=== PATIENT | female | born 1930 | race Caucasian/White ===

== ENCOUNTER 2017-09-19 22:52 | Inpatient (IN) | payer MEDICARE, MEDICAID ==
[~2017-09-19] VITALS: Ht 152.4 cm; Wt 67.1 kg
--- NOTE | 2017-09-19 22:54 | ED.ADGEN ---
Past History Past Medical History: Anxiety, Depression Adult General Chief Complaint Chief Complaint ".. I here to get checked out... " I ve been more depressed... crying more.. 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 Pt. reportedly more depressed and crying frequently for no reason. Will not this participate in her care. Pt. sent to ED for eval to admit to [facility]- Dr. Ibarra. Pt. is a resident of [facility] for past two weeks. Pt. has long hx of depression, anxiety, Insomnia, HTN, Constipation. Pt. Fellow Sister's , one that has known her 50 + yrs. and one 2 1/2 yrs. state they feel she is more depressed. Pt. denies suicidal ideations. Review of Systems Review of Systems Constitutional: Denies fever or chills [] Eyes: Denies change in visual acuity, redness, or eye pain [] HENT: Denies nasal congestion or sore throat [] Respiratory: Denies cough or shortness of breath [] Cardiovascular: No additional information not addressed in HPI [] GI: Denies abdominal pain, nausea, vomiting, bloody stools or diarrhea [] : Denies dysuria or hematuria [] Musculoskeletal: Denies back pain or joint pain [] Integument: Denies rash or skin lesions [] Neurologic: Denies headache, focal weakness or sensory changes [] Endocrine: Denies polyuria or polydipsia [] All other systems were reviewed and found to be within normal limits, except as documented in this note. Family History Family History Non-contributory Current Medications Current Medications Current Medications Medications (Trade) Dose Ordered Sig/Lizbeth Start Time Stop Time Status Last Admin Dose Admin Clonidine HCl (Catapres Tts-2) 1 patch 1X ONCE 09/19/17 23:30 09/20/17 02:02 DC 09/19/17 01:00 1 PATCH Clonidine HCl (Catapres) 0.1 mg 1X ONCE 09/19/17 23:30 09/20/17 02:02 DC 09/19/17 01:00 0.1 MG See Nursing for Home meds Allergies Allergies As per Nursing Physical Exam Physical Exam Constitutional: Moderately acute distress, non-toxic appearance. [] HENT: Normocephalic, atraumatic, bilateral external ears normal, oropharynx moist, no oral exudates, nose normal. [] Eyes: PERRLA, EOMI, conjunctiva normal, no discharge. [] Glasses. Neck: Normal range of motion, no tenderness, supple, no stridor. [] Cardiovascular:Heart rate regular rhythm, no murmur [] Lungs & Thorax: Bilateral breath sounds equal at apex on auscultation [] Abdomen: Bowel sounds normal, soft, no tenderness, no masses, no pulsatile masses. [] Skin: Warm, dry, no erythema, no rash. [] Poor turgor Back: No tenderness, no CVA tenderness. [] Extremities: No tenderness, no cyanosis, no clubbing, ROM intact, no edema. [] Arthritic changes Neurologic: Alert and oriented X 3, No gross motor or sensory defects over baseline, no focal deficits noted. [] Psychologic: Affect anxious, judgement normal, mood depressed. ] Current Patient Data Vital Signs Vital Signs Date Time Temp Pulse Resp B/P (MAP) Pulse Ox O2 Delivery O2 Flow Rate FiO2 09/19/17 01:00 83 184/95 Lab Results Laboratory Tests Test 09/19/17 02:39 09/19/17 23:17 09/19/17 23:37 Ammonia 11 mcmol/L (11-34) Troponin I Quantitative < 0.017 ng/mL (0-0.055) Ethyl Alcohol Level < 10 mg/dL (0-10) White Blood Count 9.5 x10^3/uL (4.0-11.0) Red Blood Count 4.17 x10^6/uL (3.50-5.40) Hemoglobin 13.2 g/dL (12.0-15.5) Hematocrit 39.0 % (36.0-47.0) Mean Corpuscular Volume 93 fL (79-100) Mean Corpuscular Hemoglobin 32 pg (25-35) Mean Corpuscular Hemoglobin Concent 34 g/dL (31-37) Red Cell Distribution Width 13.3 % (11.5-14.5) Platelet Count 430 x10^3/uL (140-400) H Neutrophils (%) (Auto) 46 % (31-73) Lymphocytes (%) (Auto) 39 % (24-48) Monocytes (%) (Auto) 13 % (0-9) H Eosinophils (%) (Auto) 2 % (0-3) Basophils (%) (Auto) 1 % (0-3) Neutrophils # (Auto) 4.3 x10^3uL (1.8-7.7) Lymphocytes # (Auto) 3.8 x10^3/uL (1.0-4.8) Monocytes # (Auto) 1.2 x10^3/uL (0.0-1.1) H Eosinophils # (Auto) 0.2 x10^3/uL (0.0-0.7) Basophils # (Auto) 0.1 x10^3/uL (0.0-0.2) Erythrocyte Sedimentation Rate 12 (0-25) Sodium Level 136 mmol/L (136-145) Potassium Level 3.7 mmol/L (3.5-5.1) Chloride Level 100 mmol/L (98-107) Carbon Dioxide Level 31 mmol/L (21-32) Anion Gap 5 (6-14) L Blood Urea Nitrogen 17 mg/dL (7-20) Creatinine 0.9 mg/dL (0.6-1.0) Estimated GFR (Cockcroft-Gault) 59.5 Glucose Level 95 mg/dL (70-99) Calcium Level 8.8 mg/dL (8.5-10.1) Magnesium Level 2.1 mg/dL (1.8-2.4) Total Bilirubin 0.4 mg/dL (0.2-1.0) Direct Bilirubin 0.1 mg/dL (0.0-0.2) Aspartate Amino Transferase (AST) 16 U/L (15-37) Alanine Aminotransferase (ALT) 25 U/L (14-59) Alkaline Phosphatase 82 U/L (46-116) Creatine Kinase 46 U/L (26-192) Creatine Kinase MB (Mass) < 0.5 ng/mL (0.0-3.6) Creatine Kinase MB Relative Index 1.1 % (0-4) [id number]-Type Natriuretic Peptide 146 pg/mL (0-449) Total Protein 7.8 g/dL (6.4-8.2) Albumin 3.6 g/dL (3.4-5.0) Urine Collection Type Unknown Urine Color Yellow Urine Clarity Clear Urine pH 7.0 Urine Specific [place] 1.010 Urine Protein Neg (NEG-TRACE) Urine Glucose (UA) Neg mg/dL (NEG) Urine Ketones (Stick) Neg mg/dL (NEG) Urine Blood Small (NEG) Urine Nitrite Neg (NEG) Urine Bilirubin Neg (NEG) Urine Urobilinogen Dipstick 0.2 mg/dL (0.2 mg/dL) Urine Leukocyte Esterase Trace (NEG) Urine RBC 0 /HPF (0-2) Urine WBC Occ /HPF (0-4) Urine Squamous Epithelial Cells Occ /LPF Urine Bacteria 0 /HPF (0-FEW) Urine Opiates Screen Neg (NEG) Urine Methadone Screen Neg (NEG) Urine Barbiturates Neg (NEG) Urine Phencyclidine Screen Neg (NEG) Urine Amphetamine/Methamphetamine Neg (NEG) Urine Benzodiazepines Screen Neg (NEG) Urine Cocaine Screen Neg (NEG) Urine Cannabinoids Screen Neg (NEG) Urine Ethyl Alcohol Neg (NEG) EKG EKG My interpretation EKG shows a sinus rhythm at 81 bpm. Mild leftward axis. But no findings acute STEMI with contralateral changes[] Radiology/Procedures Radiology/Procedures My interpretation of chest x-ray shows mild chronic changes but no findings of acute cardiopulmonary changes. My interpretation CT of head shows no shift, mass, edema, bleed, or fracture. Some findings consistent with white matter disease and volume loss consistent with chronic age changes. See formal report when available[] Course & Med Decision Making Course & Med Decision Making Pertinent Labs and Imaging studies reviewed. (See chart for details) Pt. to be admitted to Dr. Ibarra- [facility]- pre approved [] Final Impression Final Impression 1. Mental Status Changes 2. Accelerated HTN 3. Depression 4. Anxiety[] Dragon Disclaimer Dragon Disclaimer This electronic medical record was generated, in whole or in part, using a voice recognition dictation system. HERBERT HEWITT MD Sep 19, 2017 22:54
[2017-09-19] MEDS ORDERED: SENN-79 PO (23:24)
[2017-09-19] MEDS ORDERED: METO-239 PO (23:24)
[2017-09-19] MEDS ORDERED: CALC500T13 PO (23:24)
[2017-09-19] MEDS ORDERED: CLON0.5T11 PO ×2 (23:24)
[2017-09-19] MEDS ORDERED: BUSP10TA PO (23:24)
[2017-09-19] MEDS ORDERED: ZOLP5TAB5 PO (23:24)
[2017-09-19] MEDS ORDERED: ACET500T68 PO ×2 (23:24)
[2017-09-19] MEDS ORDERED: PARO10TA3 PO (23:24)
[2017-09-19] MEDS ORDERED: NORT25CA PO (23:24)
[2017-09-19] MEDS ORDERED: MAGN2400 PO (23:24)
--- NOTE | 2017-09-19 23:24 | EKG ---
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
[2017-09-19] MEDS ORDERED: cloNIDine TTS-2 1 PATCH PATCH TD ONE (23:30)
[2017-09-19] MEDS ORDERED: cloNIDine HCL 0.1 MG TABLET PO ONE (23:30)
[2017-09-19 23:57] LABS: BASO # 0.1 x10^3/uL (0.0-0.2); BASO % 1 % (0-3); EOS # 0.2 x10^3/uL (0.0-0.7); EOS % 2 % (0-3); HEMOGLOBIN 13.2 g/dL (12.0-15.5); LYMPH # 3.8 x10^3/uL (1.0-4.8); LYMPH % 39 % (24-48); MEAN CORPUSCULAR HEMOGLOBIN 32 pg (25-35); MEAN CORPUSCULAR HGB CONC 34 g/dL (31-37); MEAN CORPUSCULAR VOLUME 93 fL (79-100); MONO # 1.2 x10^3/uL (0.0-1.1); MONO % 13 % (0-9); NEUT # 4.3 x10^3uL (1.8-7.7); NEUT % 46 % (31-73); PLATELET COUNT 430 x10^3/uL (140-400); RED BLOOD COUNT 4.17 x10^6/uL (3.50-5.40); RED CELL DISTRIBUTION WIDTH 13.3 % (11.5-14.5); WHITE BLOOD COUNT 9.5 x10^3/uL (4.0-11.0)
[2017-09-20 00:17] LABS: ANION GAP 5 (6-14); BLOOD UREA NITROGEN 17 mg/dL (7-20); CALCIUM 8.8 mg/dL (8.5-10.1); CARBON DIOXIDE 31 mmol/L (21-32); CHLORIDE 100 mmol/L (98-107); CREATININE 0.9 mg/dL (0.6-1.0); GFR 59.5; GLUCOSE 95 mg/dL (70-99); MAGNESIUM 2.1 mg/dL (1.8-2.4); POTASSIUM 3.7 mmol/L (3.5-5.1); SODIUM 136 mmol/L (136-145)
[2017-09-20 00:25] LABS: BARBITURATES NEG (NEG); BENZODIAZEPINES NEG (NEG); CANNABINOIDS NEG (NEG); COCAINE NEG (NEG); METHADONE NEG (NEG); OPIATES NEG (NEG); PHENCYCLIDINE NEG (NEG)
[2017-09-20 00:29] LABS: BILIRUBIN,URINE NEG (NEG); CLARITY,URINE CLEAR; COLOR,URINE YELLOW; GLUCOSE,URINE NEG (NEG)
[2017-09-20 00:30] LABS: BACTERIA,URINE 0 /HPF (0-FEW); NITRITE,URINE NEG (NEG); RBC,URINE 0 /HPF (0-2); SQUAMOUS EPITHELIAL CELL,UR OCC /LPF; UROBILINOGEN,URINE 0.2 mg/dL (0.2 mg/dL); WBC,URINE OCC /HPF (0-4)
--- NOTE | 2017-09-20 00:32 | RAD ---
INDICATION: MENTAL STATUS CHANGES COMPARISON: None. TECHNIQUE: Axial CT images obtained through the head without intravenous contrast. One or more of the following individualized dose reduction techniques were utilized for this examination: 1. Automated exposure control; 2. Adjustment of the mA and/or kV according to patient size; 3. Use of iterative reconstruction technique. FINDINGS: No intracranial hemorrhage. No midline shift. Basal cisterns patents. Ventricles and sulci are globally prominent. No acute osseous abnormality. Orbits and paranasal sinuses unremarkable. Scattered foci of low attenuation within the white matter. IMPRESSION: 1. No acute intracranial hemorrhage. 2. Scattered regions of low attenuation within the white matter. Non-specific in nature but frequently secondary to chronic small vessel ischemic disease. 3. Prominence of ventricles and sulci which is frequently secondary to age related volume loss. Electronically signed by: Miguelito Brumfield MD (09/20/2017 12:28 AM) [facility]
[2017-09-20 00:37] LABS: AMPHETAMINE/METHAMPHETAMINE NEG (NEG)
[2017-09-20 01:07] LABS: SEDIMENTATION RATE 12 (0-25)
[2017-09-20] MEDS ORDERED: MAG HYDROX/AL HYDROX/SIMETH 30 ML ORAL.SUSP PO PRN (02:00)
[2017-09-20] MEDS ORDERED: METHYL SALICYLATE/MENTHOL TOPICAL OINTMENT 29GM TUBE. TP PRN (02:00)
[2017-09-20] MEDS ORDERED: ACETAMINOPHEN 500 MG TABLET PO PRN (02:15)
[2017-09-20] MEDS ORDERED: SENNOSIDES 8.6 MG TABLET PO PRN (02:15)
[2017-09-20] MEDS: ACETAMINOPHEN 500 MG TABLET PO PRN (02:31)
[2017-09-20 02:37] LABS: ALBUMIN 3.6 g/dL (3.4-5.0); TOTAL BILIRUBIN 0.4 mg/dL (0.2-1.0); TOTAL PROTEIN 7.8 g/dL (6.4-8.2)
[2017-09-20 02:59] LABS: DIRECT BILIRUBIN 0.1 mg/dL (0.0-0.2)
[2017-09-20 04:24] VITALS: BP 159/92
[2017-09-20 05:46] VITALS: BP 111/65
--- NOTE | 2017-09-20 08:36 | RAD ---
Indication: Shortness of breath TECHNIQUE: Portable AP upright chest x-ray COMPARISON: None FINDINGS: Heart is normal in size. Lungs are clear. No pneumothorax or pleural effusion. Visualized bony thorax within normal limits. IMPRESSION: No acute cardiopulmonary process. Electronically signed by: Moise Juarez DO (09/20/2017 8:32 AM) [facility]
[2017-09-20] MEDS: PARoxetine 10 MG TABLET PO SCH (09:15)
[2017-09-20] MEDS: CALCIUM CARBONATE 500 MG TABLET PO SCH (09:16)
[2017-09-20] MEDS: clonazePAM 0.5 MG TABLET PO SCH ×2 (09:16→20:27)
[2017-09-20] MEDS: busPIRone 10 MG TABLET. PO SCH ×2 (09:16→20:26)
[2017-09-20] MEDS: METOPROLOL SUCC 24HR ER 25 MG TAB.ER.24H. PO SCH (09:16)
[2017-09-20 16:41] VITALS: BP 151/84
--- NOTE | 2017-09-20 20:04 | PDOC ---
Exam Note: Reynaldo Note: Please also refer to the separate dictated note~for this date of service dictated separately.~Patient seen individually. Discussed the patient with Nursing staff reviewed the chart.~Reviewed interim history and current functioning. Reviewed vital signs,~Labs/ Radiology~and current medications noted below. Continue current treatment with the changes noted in the dictated addendum note Assessment: Vital Signs: Vital Signs Date Time Temp Pulse Resp B/P (MAP) Pulse Ox O2 Delivery O2 Flow Rate FiO2 09/20/17 16:41 97.4 85 20 151/84 (106) 99 Room Air I&O Intake and Output 09/20/17 07:00 Intake Total 240 ml Balance 240 ml Intake Oral 240 ml # Voids 2 Labs: Laboratory Tests Test 09/19/17 23:17 09/19/17 23:37 White Blood Count 9.5 x10^3/uL (4.0-11.0) Red Blood Count 4.17 x10^6/uL (3.50-5.40) Hemoglobin 13.2 g/dL (12.0-15.5) Hematocrit 39.0 % (36.0-47.0) Mean Corpuscular Volume 93 fL (79-100) Mean Corpuscular Hemoglobin 32 pg (25-35) Mean Corpuscular Hemoglobin Concent 34 g/dL (31-37) Red Cell Distribution Width 13.3 % (11.5-14.5) Platelet Count 430 x10^3/uL (140-400) H Neutrophils (%) (Auto) 46 % (31-73) Lymphocytes (%) (Auto) 39 % (24-48) Monocytes (%) (Auto) 13 % (0-9) H Eosinophils (%) (Auto) 2 % (0-3) Basophils (%) (Auto) 1 % (0-3) Neutrophils # (Auto) 4.3 x10^3uL (1.8-7.7) Lymphocytes # (Auto) 3.8 x10^3/uL (1.0-4.8) Monocytes # (Auto) 1.2 x10^3/uL (0.0-1.1) H Eosinophils # (Auto) 0.2 x10^3/uL (0.0-0.7) Basophils # (Auto) 0.1 x10^3/uL (0.0-0.2) Erythrocyte Sedimentation Rate 12 (0-25) Sodium Level 136 mmol/L (136-145) Potassium Level 3.7 mmol/L (3.5-5.1) Chloride Level 100 mmol/L (98-107) Carbon Dioxide Level 31 mmol/L (21-32) Anion Gap 5 (6-14) L Blood Urea Nitrogen 17 mg/dL (7-20) Creatinine 0.9 mg/dL (0.6-1.0) Estimated GFR (Cockcroft-Gault) 59.5 Glucose Level 95 mg/dL (70-99) Calcium Level 8.8 mg/dL (8.5-10.1) Magnesium Level 2.1 mg/dL (1.8-2.4) Iron Level 38 ug/dL (50-170) L Total Iron Binding Capacity 285 ug/dL (250-450) Iron Saturation 13 % (15-34) L Total Bilirubin 0.4 mg/dL (0.2-1.0) Direct Bilirubin 0.1 mg/dL (0.0-0.2) Aspartate Amino Transferase (AST) 16 U/L (15-37) Alanine Aminotransferase (ALT) 25 U/L (14-59) Alkaline Phosphatase 82 U/L (46-116) Creatine Kinase 46 U/L (26-192) Creatine Kinase MB (Mass) < 0.5 ng/mL (0.0-3.6) Creatine Kinase MB Relative Index 1.1 % (0-4) MN-[id number]-C-Type Natriuretic Peptide 146 pg/mL (0-449) Total Protein 7.8 g/dL (6.4-8.2) Albumin 3.6 g/dL (3.4-5.0) Triglycerides Level 122 mg/dL (0-150) Cholesterol Level 226 mg/dL (0-200) H LDL Cholesterol, Calculated 138 mg/dL (0-100) H VLDL Cholesterol, Calculated 24 mg/dL (0-40) Non-HDL Cholesterol Calculated 162 mg/dL (0-129) H HDL Cholesterol 64 mg/dL (40-60) H Cholesterol/HDL Ratio 3.0 Vitamin B12 Level 456 pg/mL (247-911) 25-Hydroxy Vitamin D Total 22.1 ng/mL (30-100) L Urine Collection Type Unknown Urine Color Yellow Urine Clarity Clear Urine pH 7.0 Urine Specific [place] 1.010 Urine Protein Neg (NEG-TRACE) Urine Glucose (UA) Neg mg/dL (NEG) Urine Ketones (Stick) Neg mg/dL (NEG) Urine Blood Small (NEG) Urine Nitrite Neg (NEG) Urine Bilirubin Neg (NEG) Urine Urobilinogen Dipstick 0.2 mg/dL (0.2 mg/dL) Urine Leukocyte Esterase Trace (NEG) Urine RBC 0 /HPF (0-2) Urine WBC Occ /HPF (0-4) Urine Squamous Epithelial Cells Occ /LPF Urine Bacteria 0 /HPF (0-FEW) Urine Opiates Screen Neg (NEG) Urine Methadone Screen Neg (NEG) Urine Barbiturates Neg (NEG) Urine Phencyclidine Screen Neg (NEG) Urine Amphetamine/Methamphetamine Neg (NEG) Urine Benzodiazepines Screen Neg (NEG) Urine Cocaine Screen Neg (NEG) Urine Cannabinoids Screen Neg (NEG) Urine Ethyl Alcohol Neg (NEG) Current Medications: Meds: Current Medications Clonidine HCl (Catapres Tts-2) 1 patch 1X ONCE TD Last administered on at 01:00; Start 09/19/17 at 23:30; Stop 09/20/17 at 02:02; Status DC Clonidine HCl (Catapres) 0.1 mg 1X ONCE PO Last administered on 09/19/17at 01: 00; Start 09/19/17 at 23:30; Stop 09/20/17 at 02:02; Status DC Clonazepam (KlonoPIN) 0.25 mg DAILY PO Last administered on 09/20/17at 09:16; Start 09/20/17 at 09:00 Clonazepam (KlonoPIN) 0.5 mg HS PO ; Start 09/20/17 at 21:00 Nortriptyline HCl (Pamelor) 50 mg HS PO ; Start 09/20/17 at 21:00; Stop at 21:00; Status DC Zolpidem Tartrate (Ambien) 5 mg HS PO ; Start 09/20/17 at 21:00 Buspirone HCl (Buspar) 10 mg BID PO Last administered on 09/20/17at 09:16; Start 09/20/17 at 09:00 Paroxetine HCl (Paxil) 10 mg DAILY PO Last administered on 09/20/17at 09:15; Start 09/20/17 at 09:00 Calcium Carbonate/ Glycine (Oscal) 500 mg DAILY PO Last administered on at 09:16; Start 09/20/17 at 09:00 Metoprolol Succinate (Toprol Xl) 12.5 mg DAILY PO Last administered on at 09:16; Start 09/20/17 at 09:00 Acetaminophen (Tylenol) 1,000 mg PRN Q6HRS PRN PO PAIN / TEMP; Start 09/20/17 at 02:15 Acetaminophen (Tylenol) 500 mg PRN Q6HRS PRN PO PAIN / TEMP Last administered on 09/20/17at 02:31; Start 09/20/17 at 02:15 Magnesium Hydroxide (Milk Of Magnesia) 2,400 mg PRN DAILY PRN PO CONSTIPATION; Start 09/20/17 at 02:15 Sennosides (Senna) 8.6 mg PRN DAILY PRN PO CONSTIPATION; Start 09/20/17 at 02: 15 Multi-Ingredient Ointment (Analgesic [place]) 1 joaquim PRN QID PRN TP MUSCLE PAIN; Start 09/20/17 at 02:00 Al Hydroxide/Mg Hydroxide (Mylanta Plus Xs) 15 ml PRN AFTMEALHC PRN PO DYSPEPSIA; Start 09/20/17 at 02:00 Mirtazapine (Remeron) 7.5 mg QHS PO ; Start 09/20/17 at 21:00 Alprazolam (Xanax) 0.25 mg PRN Q2HR PRN PO ANXIETY / AGITATION; Start 09/20/17 at 18:45 Vitamin D (Vitamin D3) 50,000 unit WEEKLY PO ; Start 09/20/17 at 19:30 Active Scripts Active Reported Milk Of Magnesia (Magnesium Hydroxide) 2,400 Mg/10 Ml Oral.susp 2,400 Mg PO PRN DAILY PRN Clonazepam 0.5 Mg Tablet 0.25 Mg PO DAILY Clonazepam 0.5 Mg Tablet 0.5 Mg PO HS Zolpidem Tartrate 5 Mg Tablet 5 Mg PO HS Oyster Shell Calcium (Calcium Carbonate) 500 Mg Tablet 500 Mg PO DAILY Senna (Sennosides) 8.6 Mg Tablet 8.6 Mg PO PRN DAILY PRN Acetaminophen 500 Mg Tablet 1,000 Mg PO PRN Q6HRS PRN Acetaminophen 500 Mg Tablet 500 Mg PO PRN Q4HRS PRN Metoprolol Succinate ( Xl ) (Metoprolol Succinate) 25 Mg Tab.er.24h 12.5 Mg PO DAILY Nortriptyline Hcl 25 Mg Capsule 50 Mg PO HS Buspirone Hcl 10 Mg Tablet 10 Mg PO BID Paroxetine Hcl 10 Mg Tablet 10 Mg PO DAILY I have reviewed the current psychotropics carefully including drug interactions. Risk benefit ratio favors no change other than as noted in my dictated progress note. 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
[2017-09-20] MEDS: ZOLPIDEM 5 MG TABLET. PO SCH (20:27)
[2017-09-20] MEDS: CHOLECALCIFEROL (VITAMIN D3) 50,000 UNIT CAPSULE PO SCH (20:27)
[2017-09-20] MEDS: MIRTAZAPINE 7.5 MG TABLET. PO SCH (20:27)
[2017-09-20] MEDS ORDERED: NORTRIPTYLINE 25 MG CAPSULE PO SCH (21:00)
[2017-09-20 21:11] LABS: THYROXINE 6.2 ug/dL (4.5-12.0)
--- NOTE | 2017-09-21 01:07 | CONS ---
DATE OF CONSULTATION: 09/20/2017 REASON FOR CONSULTATION: Medical management. 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 She reported being more depressed, crying frequently for no reason. She would not participate in her care. She is not walking anymore and she apparently was moved from [facility] to [facility] in [place] for the past 2 weeks, hoping that this move will improve her anxiety, but apparently the patient has long history of depression, anxiety, insomnia, hypertension, constipation. Her fellow sisters feel that she is more depressed, but she denied any suicidal or homicidal ideation and was admitted for inpatient psychiatric stabilization. PAST MEDICAL HISTORY: Significant for hypertension, constipation, depression, anxiety, insomnia. PAST SURGICAL HISTORY: Significant for right ankle fracture, status post open reduction and internal fixation, left knee arthroplasty. She has a tracheostomy and bilateral cataract extraction. ALLERGIES: She is allergic TO PROCAINE AND CORTISONE. MEDICATIONS: She is currently on following medications: She is on metoprolol succinate 12.5 mg daily, acetaminophen 500 mg every 4 hours, Tylenol 1000 mg every 6 hours, clonazepam 0.5 mg at bedtime, clonazepam 0.25 mg daily, nortriptyline 50 mg at bedtime, paroxetine 10 mg daily, buspirone 10 mg twice a day, Ambien 5 mg at bedtime, calcium carbonate 500 mg, oyster shell calcium 500 mg daily, magnesium hydroxide for milk of magnesia daily p.r.n. for constipation, Senna 1 tablet p.o. daily p.r.n. for constipation. FAMILY HISTORY: She is 17 with family of 7 siblings, only 2 sisters are still alive, one older and one younger, both are survival one of the colon cancer and the other of breast cancer, has a very strong family history of cancer, hypertension and heart disease. 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 She does not smoke, drink alcohol or use recreational drugs. REVIEW OF SYSTEMS: As per history of present illness. PHYSICAL EXAMINATION GENERAL: When I examined her, she was sitting on the edge of the bed, comfortably in no apparent respiratory distress, slightly pale, but no jaundice, cyanosis or thyromegaly. No jugular venous distension. No lower limb edema. VITAL SIGNS: Her heart rate was 85, blood pressure was 151/84, temperature was 97.4, respiratory rate 20 and oxygen saturation was 99%. HEAD, EYES, EARS, NOSE AND THROAT: Showed normocephalic, atraumatic. NECK: Supple. HEART: Showed normal first and second sounds. No gallop, rub or murmur. CHEST: Clear to auscultation. No crepitation or rhonchi. ABDOMEN: Distended, soft, nontender. NEUROLOGIC: She is awake, alert, responding appropriately. Cranial nerves are intact. EXTREMITIES: She moves extremities without difficulty. She ambulates without assistance or assistive devices. LABORATORY DATA: Showed a white cell count of 9500, hemoglobin 13, hematocrit 39, MCV 93 and platelet count of 430,000 with normal manual differential. Her chemistry showed a serum sodium 136, potassium 3.7, chloride 100, bicarbonate 31, anion gap of 5, BUN 17, creatinine 0.9. Estimated GFR was 59 mL per minute. Her glucose 95. Calcium was 8.8, magnesium was 2.1. Her serum iron was 38, TIBC was 285, percent saturation was 13. Her total bilirubin is 0.4. AST, ALT, alkaline phosphatase were normal. Total protein 7.8, albumin was 3.6. Serum triglycerides 122, cholesterol 226, LDL was 138, VLDL was 24 and HDL was 64, ratio of 3. Her vitamin B12 was 456 and 25-hydroxy vitamin D3 was 22.1. Her TSH was slightly elevated at 4.296. Her urinalysis showed the urine was yellow, clear with a pH of 7, specific gravity of 1.010. The urine was negative for protein, glucose, ketones. There was small amount of blood, negative for nitrites and trace leukocyte esterase. No rbc's, no wbc's, and no bacteria. Her toxic screen was essentially negative. Her Treponema pallidum antibodies were nonreactive. She did have a CT scan of the head, which showed that the patient has no acute intracranial hemorrhage, scattered regions of low attenuation within the white matter, nonspecific in nature, but frequently secondary to chronic small vessel ischemic disease, she has prominence of ventricles sulci, which is frequently secondary to age-related volume loss. Her chest x-ray showed heart size is normal. Lungs are clear, no pneumothorax or pleural effusion, visualized bony thorax within normal limits. 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 She has moved from [facility] to the [facility] in [place] hoping this will help her symptoms. Apparently, she is now more isolated, does not participate with care, does not to do her daily walks that she used to do and was admitted to this unit for inpatient psychiatric stabilization. Medically, she has high blood pressure, vitamin D deficiency, chronic constipation, anxiety and depression. Apart from vitamin D deficiency, all her labs are remarkably normal. I will start her on cholecalciferol 50,000 units once a week and we will follow all her lab work that are still pending at the time of this dictation. Thank you, Dr. Ibarra for allowing me to participate in the care of this patient. LIANNE ASHFORD MD DR: HERMILA/kaitlin JOB#: [id number] / [id number]
[2017-09-21 05:15] LABS: HEMOGLOBIN A1C 5.6 % (4.8-5.6)
[2017-09-21 06:10] VITALS: BP 156/79
[2017-09-21] MEDS: busPIRone 10 MG TABLET. PO SCH ×2 (08:01→20:17)
[2017-09-21] MEDS: METOPROLOL SUCC 24HR ER 25 MG TAB.ER.24H. PO SCH (08:02)
[2017-09-21] MEDS: PARoxetine 10 MG TABLET PO SCH (08:02)
[2017-09-21] MEDS: CALCIUM CARBONATE 500 MG TABLET PO SCH (08:02)
[2017-09-21] MEDS: clonazePAM 0.5 MG TABLET PO SCH ×2 (08:03→20:18)
--- NOTE | 2017-09-21 10:33 | HP ---
ADMIT DATE: 09/20/2017 This late entry of date of service 09/20/2017, covers the elements not covered in my initial note 09/20/2017. I met with the patient evening of 09/20/2017. Previously discussed with nursing staff on 2 or 3 occasions, initially prior to the patient's admission to review the inpatient criteria and then since her admission on account of her complaints of anxiety and wanting something for it earlier in the day on 09/20/2017. 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 by her primary care physician, Dr. Jewel Cardenas on account of increased anxiety and depression having significant crying spells and anxiety episodes where she relates she cannot breathe and cannot function. Reportedly, the patient has a long history of depression and anxiety but symptoms have been worsening over the past 1 or 2 weeks. She has failed outpatient psychiatric interventions with Dr. Jefferson, her psychiatrist. CHIEF COMPLAINT: "I have anxiety attacks. I used to see my doctor, Dr. Rodriguez, in [place], [place] for many years and he had has me on medications but nothing is helping." HISTORY OF PRESENT ILLNESS: The patient relates a long history of depression, low mood, feeling somewhat hopeless, helpless with anxiety and panic attacks, significant insomnia. She has had some appetite disturbance as well. No clear history of bipolar disorder, suicidal or homicidal ideation. Most recently, the symptoms have been significantly incapacitating, unmanageable at the [facility] and therefore, referred for inpatient psychiatric stabilization. PAST PSYCHIATRIC HISTORY: As above. MEDICAL HISTORY: Positive for osteoporosis, hypertension, irritable bowel syndrome. ALLERGIES: NOVOCAIN, CORTISONE. CODE STATUS: DNR. ACCU-CHEKS: None. DIET: Regular, takes her medications whole. Ambulates ad naldo. UA on 09/19/2017, was negative. CURRENT PSYCHOTROPICS: At admission, Paxil 10 mg a day, BuSpar 10 mg daily, nortriptyline 50 mg daily, Ambien 5 mg at bedtime, Klonopin 0.5 mg at bedtime and 0.25 mg in the morning. FAMILY HISTORY: Noncontributory. SOCIAL HISTORY: No history of alcohol or drug abuse, physical, sexual or elder abuse. She is not known to be a perpetrator. REACTION TO HOSPITALIZATION: The patient accepting of this. ASSETS: Supportive living at the [facility]. MENTAL STATUS EXAM: The patient was seen individually at length the evening of 09/20/2017. She is well oriented, extremely anxious, apprehensive. Eye contact is good. Psychomotor activity normal to somewhat increased. Speech coherent, rapid at times consequent to anxiety. Abstraction fair, computation she was only able to do one step on serial 7 and that even with assistance. She spelled world forward no error and backward 2 errors, attention span short. Language function intact. No active suicidal or homicidal ideation. LABORATORY DATA: Reviewed. IMPRESSION: Major depressive disorder, recurrent; panic disorder; anxiety disorder, unspecified. Rest as above. PLAN: Admit to geropsychiatry unit at [facility]. I will see the patient daily individually from a psychiatric standpoint, medical followup with Dr. Davila/Dr. Vo. The Paxil could contribute to cytochrome P450 2D6 inhibition and affect the blood level of nortriptyline. Additionally, she is having significant insomnia, despite her current regimen. We changed the nortriptyline to Remeron 7.5 mg p.o. at bedtime and for now, maintain the Paxil, BuSpar, along with Ambien and Klonopin and start Xanax 0.25 mg q.2 hours p.r.n. anxiety max 1 mg in 24 hours. We will make further adjustments post baseline assessment and depending on her response to the initial changes. PEDRO BLAKELY MD DR: FERNANDA/kaitlin JOB#: [id number] / [id number]
[2017-09-21] MEDS: ALPRAZolam 0.25 MG TABLET PO PRN (12:57)
[2017-09-21 16:22] VITALS: BP 133/69
[2017-09-21] MEDS: MIRTAZAPINE 7.5 MG TABLET. PO SCH (20:17)
[2017-09-21] MEDS: ZOLPIDEM 5 MG TABLET. PO SCH (20:18)
--- NOTE | 2017-09-21 20:50 | PDOC ---
Exam Note: Reynaldo Note: Please also refer to the separate dictated note~for this date of service dictated separately.~Patient seen individually. Discussed the patient with Nursing staff reviewed the chart.~Reviewed interim history and current functioning. Reviewed vital signs,~Labs/ Radiology~and current medications noted below. Continue current treatment with the changes noted in the dictated addendum note Assessment: Vital Signs: Vital Signs Date Time Temp Pulse Resp B/P (MAP) Pulse Ox O2 Delivery O2 Flow Rate FiO2 09/21/17 16:22 97.6 80 16 133/69 (90) 99 09/20/17 16:41 Room Air I&O Intake and Output 09/21/17 07:00 Intake Total 1080 ml Balance 1080 ml Intake Oral 1080 ml Current Medications: Meds: Current Medications Clonidine HCl (Catapres Tts-2) 1 patch 1X ONCE TD Last administered on at 01:00; Start 09/19/17 at 23:30; Stop 09/20/17 at 02:02; Status DC Clonidine HCl (Catapres) 0.1 mg 1X ONCE PO Last administered on 09/19/17 01: 00; Start 09/19/17 at 23:30; Stop 09/20/17 at 02:02; Status DC Clonazepam (KlonoPIN) 0.25 mg DAILY PO Last administered on 09/21/17at 08:03; Start 09/20/17 at 09:00 Clonazepam (KlonoPIN) 0.5 mg HS PO Last administered on 09/21/17at 20:18; Start 09/20/17 at 21:00 Nortriptyline HCl (Pamelor) 50 mg HS PO ; Start 09/20/17 at 21:00; Stop at 21:00; Status DC Zolpidem Tartrate (Ambien) 5 mg HS PO Last administered on 09/21/17at 20:18; Start 09/20/17 at 21:00 Buspirone HCl (Buspar) 10 mg BID PO Last administered on 09/21/17at 20:17; Start 09/20/17 at 09:00 Paroxetine HCl (Paxil) 10 mg DAILY PO Last administered on 09/21/17at 08:02; Start 09/20/17 at 09:00 Calcium Carbonate/ Glycine (Oscal) 500 mg DAILY PO Last administered on 6/13/ 18at 08:02; Start 09/20/17 at 09:00 Metoprolol Succinate (Toprol Xl) 12.5 mg DAILY PO Last administered on at 08:02; Start 09/20/17 at 09:00 Acetaminophen (Tylenol) 1,000 mg PRN Q6HRS PRN PO PAIN / TEMP; Start 09/20/17 at 02:15 Acetaminophen (Tylenol) 500 mg PRN Q6HRS PRN PO PAIN / TEMP Last administered on 09/20/17at 02:31; Start 09/20/17 at 02:15 Magnesium Hydroxide (Milk Of Magnesia) 2,400 mg PRN DAILY PRN PO CONSTIPATION; Start 09/20/17 at 02:15 Sennosides (Senna) 8.6 mg PRN DAILY PRN PO CONSTIPATION; Start 09/20/17 at 02: 15 Multi-Ingredient Ointment (Analgesic [place]) 1 joaquim PRN QID PRN TP MUSCLE PAIN; Start 09/20/17 at 02:00 Al Hydroxide/Mg Hydroxide (Mylanta Plus Xs) 15 ml PRN AFTMEALHC PRN PO DYSPEPSIA; Start 09/20/17 at 02:00 Mirtazapine (Remeron) 7.5 mg QHS PO Last administered on 09/21/17at 20:17; Start 09/20/17 at 21:00 Alprazolam (Xanax) 0.25 mg PRN Q2HR PRN PO ANXIETY / AGITATION Last administered on 09/21/17at 12:57; Start 09/20/17 at 18:45 Vitamin D (Vitamin D3) 50,000 unit WEEKLY PO Last administered on 09/20/17at 20: 27; Start 09/20/17 at 19:30 Active Scripts Active Reported Milk Of Magnesia (Magnesium Hydroxide) 2,400 Mg/10 Ml Oral.susp 2,400 Mg PO PRN DAILY PRN Clonazepam 0.5 Mg Tablet 0.25 Mg PO DAILY Clonazepam 0.5 Mg Tablet 0.5 Mg PO HS Zolpidem Tartrate 5 Mg Tablet 5 Mg PO HS Oyster Shell Calcium (Calcium Carbonate) 500 Mg Tablet 500 Mg PO DAILY Senna (Sennosides) 8.6 Mg Tablet 8.6 Mg PO PRN DAILY PRN Acetaminophen 500 Mg Tablet 1,000 Mg PO PRN Q6HRS PRN Acetaminophen 500 Mg Tablet 500 Mg PO PRN Q4HRS PRN Metoprolol Succinate ( Xl ) (Metoprolol Succinate) 25 Mg Tab.er.24h 12.5 Mg PO DAILY Nortriptyline Hcl 25 Mg Capsule 50 Mg PO HS Buspirone Hcl 10 Mg Tablet 10 Mg PO BID Paroxetine Hcl 10 Mg Tablet 10 Mg PO DAILY I have reviewed the current psychotropics carefully including drug interactions. Risk benefit ratio favors no change other than as noted in my dictated progress note. 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
[2017-09-22 05:48] VITALS: BP 147/80
[2017-09-22] MEDS: CALCIUM CARBONATE 500 MG TABLET PO SCH (08:15)
[2017-09-22] MEDS: PARoxetine 10 MG TABLET PO SCH (08:15)
[2017-09-22] MEDS: METOPROLOL SUCC 24HR ER 25 MG TAB.ER.24H. PO SCH (08:16)
[2017-09-22] MEDS: busPIRone 10 MG TABLET. PO SCH ×2 (08:16→20:30)
[2017-09-22] MEDS: clonazePAM 0.5 MG TABLET PO SCH ×2 (08:17→20:30)
[2017-09-22] MEDS: ALPRAZolam 0.25 MG TABLET PO PRN (14:23)
[2017-09-22 16:41] VITALS: BP 164/81
[2017-09-22] MEDS: MIRTAZAPINE 7.5 MG TABLET. PO SCH (20:30)
[2017-09-22] MEDS: ZOLPIDEM 5 MG TABLET. PO SCH (20:30)
--- NOTE | 2017-09-22 22:23 | PDOC ---
Exam Note: Reynaldo Note: Please also refer to the separate dictated note~for this date of service dictated separately.~Patient seen individually. Discussed the patient with Nursing staff reviewed the chart.~Reviewed interim history and current functioning. Reviewed vital signs,~Labs/ Radiology~and current medications noted below. Continue current treatment with the changes noted in the dictated addendum note Assessment: Vital Signs: Vital Signs Date Time Temp Pulse Resp B/P (MAP) Pulse Ox O2 Delivery O2 Flow Rate FiO2 09/22/17 16:41 97.3 85 20 164/81 (108) 99 Room Air I&O Intake and Output 09/22/17 07:00 Intake Total 1200 ml Balance 1200 ml Intake Oral 1200 ml # Voids 1 Current Medications: Meds: Current Medications Clonidine HCl (Catapres Tts-2) 1 patch 1X ONCE TD Last administered on at 01:00; Start 09/19/17 at 23:30; Stop 09/20/17 at 02:02; Status DC Clonidine HCl (Catapres) 0.1 mg 1X ONCE PO Last administered on 09/19/17at 01: 00; Start 09/19/17 at 23:30; Stop 09/20/17 at 02:02; Status DC Clonazepam (KlonoPIN) 0.25 mg DAILY PO Last administered on 09/22/17at 08:17; Start 09/20/17 at 09:00 Clonazepam (KlonoPIN) 0.5 mg HS PO Last administered on 09/22/17at 20:30; Start 09/20/17 at 21:00 Nortriptyline HCl (Pamelor) 50 mg HS PO ; Start 09/20/17 at 21:00; Stop at 21:00; Status DC Zolpidem Tartrate (Ambien) 5 mg HS PO Last administered on 09/22/17at 20:30; Start 09/20/17 at 21:00 Buspirone HCl (Buspar) 10 mg BID PO Last administered on 09/22/17at 20:30; Start 09/20/17 at 09:00 Paroxetine HCl (Paxil) 10 mg DAILY PO Last administered on 09/22/17at 08:15; Start 09/20/17 at 09:00 Calcium Carbonate/ Glycine (Oscal) 500 mg DAILY PO Last administered on at 08:15; Start 09/20/17 at 09:00 Metoprolol Succinate (Toprol Xl) 12.5 mg DAILY PO Last administered on at 08:16; Start 09/20/17 at 09:00 Acetaminophen (Tylenol) 1,000 mg PRN Q6HRS PRN PO PAIN / TEMP; Start 09/20/17 at 02:15 Acetaminophen (Tylenol) 500 mg PRN Q6HRS PRN PO PAIN / TEMP Last administered on 09/20/17at 02:31; Start 09/20/17 at 02:15 Magnesium Hydroxide (Milk Of Magnesia) 2,400 mg PRN DAILY PRN PO CONSTIPATION; Start 09/20/17 at 02:15 Sennosides (Senna) 8.6 mg PRN DAILY PRN PO CONSTIPATION; Start 09/20/17 at 02: 15 Multi-Ingredient Ointment (Analgesic [place]) 1 joaquim PRN QID PRN TP MUSCLE PAIN; Start 09/20/17 at 02:00 Al Hydroxide/Mg Hydroxide (Mylanta Plus Xs) 15 ml PRN AFTMEALHC PRN PO DYSPEPSIA; Start 09/20/17 at 02:00 Mirtazapine (Remeron) 7.5 mg QHS PO Last administered on 09/22/17at 20:30; Start 09/20/17 at 21:00 Alprazolam (Xanax) 0.25 mg PRN Q2HR PRN PO ANXIETY / AGITATION Last administered on 09/22/17at 14:23; Start 09/20/17 at 18:45 Vitamin D (Vitamin D3) 50,000 unit WEEKLY PO Last administered on 09/20/17at 20: 27; Start 09/20/17 at 19:30 Active Scripts Active Reported Milk Of Magnesia (Magnesium Hydroxide) 2,400 Mg/10 Ml Oral.susp 2,400 Mg PO PRN DAILY PRN Clonazepam 0.5 Mg Tablet 0.25 Mg PO DAILY Clonazepam 0.5 Mg Tablet 0.5 Mg PO HS Zolpidem Tartrate 5 Mg Tablet 5 Mg PO HS Oyster Shell Calcium (Calcium Carbonate) 500 Mg Tablet 500 Mg PO DAILY Senna (Sennosides) 8.6 Mg Tablet 8.6 Mg PO PRN DAILY PRN Acetaminophen 500 Mg Tablet 1,000 Mg PO PRN Q6HRS PRN Acetaminophen 500 Mg Tablet 500 Mg PO PRN Q4HRS PRN Metoprolol Succinate ( Xl ) (Metoprolol Succinate) 25 Mg Tab.er.24h 12.5 Mg PO DAILY Nortriptyline Hcl 25 Mg Capsule 50 Mg PO HS Buspirone Hcl 10 Mg Tablet 10 Mg PO BID Paroxetine Hcl 10 Mg Tablet 10 Mg PO DAILY I have reviewed the current psychotropics carefully including drug interactions. Risk benefit ratio favors no change other than as noted in my dictated progress note. 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
[2017-09-23] MEDS: ACETAMINOPHEN 500 MG TABLET PO PRN (02:11)
[2017-09-23 06:35] VITALS: BP 158/81
[2017-09-23] MEDS: PARoxetine 10 MG TABLET PO SCH (08:11)
[2017-09-23] MEDS: METOPROLOL SUCC 24HR ER 25 MG TAB.ER.24H. PO SCH (08:12)
[2017-09-23] MEDS: busPIRone 10 MG TABLET. PO SCH ×2 (08:16→21:05)
[2017-09-23] MEDS: clonazePAM 0.5 MG TABLET PO SCH ×2 (08:16→21:06)
[2017-09-23] MEDS: CALCIUM CARBONATE 500 MG TABLET PO SCH (08:16)
[2017-09-23] MEDS: ALPRAZolam 0.25 MG TABLET PO PRN ×2 (10:40→15:27)
[2017-09-23 16:31] VITALS: BP 148/75
[2017-09-23] MEDS: ZOLPIDEM 5 MG TABLET. PO SCH (21:05)
[2017-09-23] MEDS: MIRTAZAPINE 15 MG TABLET PO SCH (21:06)
--- NOTE | 2017-09-23 22:24 | PDOC ---
Exam Note: Reynaldo Note: Please also refer to the separate dictated note~for this date of service dictated separately.~Patient seen individually. Discussed the patient with Nursing staff reviewed the chart.~Reviewed interim history and current functioning. Reviewed vital signs,~Labs/ Radiology~and current medications noted below. Continue current treatment with the changes noted in the dictated addendum note Assessment: Vital Signs: Vital Signs Date Time Temp Pulse Resp B/P (MAP) Pulse Ox O2 Delivery O2 Flow Rate FiO2 09/23/17 16:31 97.1 77 20 148/75 (99) 98 Room Air I&O Intake and Output 09/23/17 07:00 Intake Total 1840 ml Balance 1840 ml Intake Oral 1840 ml # Voids 1 Current Medications: Meds: Current Medications Clonidine HCl (Catapres Tts-2) 1 patch 1X ONCE TD Last administered on at 01:00; Start 09/19/17 at 23:30; Stop 09/20/17 at 02:02; Status DC Clonidine HCl (Catapres) 0.1 mg 1X ONCE PO Last administered on 09/19/17at 01: 00; Start 09/19/17 at 23:30; Stop 09/20/17 at 02:02; Status DC Clonazepam (KlonoPIN) 0.25 mg DAILY PO Last administered on 09/23/17at 08:16; Start 09/20/17 at 09:00 Clonazepam (KlonoPIN) 0.5 mg HS PO Last administered on 09/23/17at 21:06; Start 09/20/17 at 21:00 Nortriptyline HCl (Pamelor) 50 mg HS PO ; Start 09/20/17 at 21:00; Stop at 21:00; Status DC Zolpidem Tartrate (Ambien) 5 mg HS PO Last administered on 09/23/17at 21:05; Start 09/20/17 at 21:00 Buspirone HCl (Buspar) 10 mg BID PO Last administered on 09/23/17at 21:05; Start 09/20/17 at 09:00 Paroxetine HCl (Paxil) 10 mg DAILY PO Last administered on 09/23/17at 08:11; Start 09/20/17 at 09:00; Stop 09/23/17 at 19:20; Status DC Calcium Carbonate/ Glycine (Oscal) 500 mg DAILY PO Last administered on at 08:16; Start 09/20/17 at 09:00 Metoprolol Succinate (Toprol Xl) 12.5 mg DAILY PO Last administered on at 08:12; Start 09/20/17 at 09:00 Acetaminophen (Tylenol) 1,000 mg PRN Q6HRS PRN PO PAIN / TEMP; Start 09/20/17 at 02:15 Acetaminophen (Tylenol) 500 mg PRN Q6HRS PRN PO PAIN / TEMP Last administered on 09/23/17at 02:11; Start 09/20/17 at 02:15 Magnesium Hydroxide (Milk Of Magnesia) 2,400 mg PRN DAILY PRN PO CONSTIPATION; Start 09/20/17 at 02:15 Sennosides (Senna) 8.6 mg PRN DAILY PRN PO CONSTIPATION; Start 09/20/17 at 02: 15 Multi-Ingredient Ointment (Analgesic [place]) 1 joaquim PRN QID PRN TP MUSCLE PAIN; Start 09/20/17 at 02:00 Al Hydroxide/Mg Hydroxide (Mylanta Plus Xs) 15 ml PRN AFTMEALHC PRN PO DYSPEPSIA; Start 09/20/17 at 02:00 Mirtazapine (Remeron) 7.5 mg QHS PO Last administered on 09/22/17at 20:30; Start 09/20/17 at 21:00; Stop 09/23/17 at 19:20; Status DC Alprazolam (Xanax) 0.25 mg PRN Q2HR PRN PO ANXIETY / AGITATION Last administered on 09/23/17at 15:27; Start 09/20/17 at 18:45 Vitamin D (Vitamin D3) 50,000 unit WEEKLY PO Last administered on 09/20/17at 20: 27; Start 09/20/17 at 19:30 Mirtazapine (Remeron) 15 mg QHS PO Last administered on 09/23/17at 21:06; Start 09/23/17 at 21:00 Paroxetine HCl (Paxil) 15 mg DAILY PO ; Start 09/24/17 at 09:00 Active Scripts Active Reported Milk Of Magnesia (Magnesium Hydroxide) 2,400 Mg/10 Ml Oral.susp 2,400 Mg PO PRN DAILY PRN Clonazepam 0.5 Mg Tablet 0.25 Mg PO DAILY Clonazepam 0.5 Mg Tablet 0.5 Mg PO HS Zolpidem Tartrate 5 Mg Tablet 5 Mg PO HS Oyster Shell Calcium (Calcium Carbonate) 500 Mg Tablet 500 Mg PO DAILY Senna (Sennosides) 8.6 Mg Tablet 8.6 Mg PO PRN DAILY PRN Acetaminophen 500 Mg Tablet 1,000 Mg PO PRN Q6HRS PRN Acetaminophen 500 Mg Tablet 500 Mg PO PRN Q4HRS PRN Metoprolol Succinate ( Xl ) (Metoprolol Succinate) 25 Mg Tab.er.24h 12.5 Mg PO DAILY Nortriptyline Hcl 25 Mg Capsule 50 Mg PO HS Buspirone Hcl 10 Mg Tablet 10 Mg PO BID Paroxetine Hcl 10 Mg Tablet 10 Mg PO DAILY I have reviewed the current psychotropics carefully including drug interactions. Risk benefit ratio favors no change other than as noted in my dictated progress note. 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
--- NOTE | 2017-09-24 00:37 | PN ---
DATE: 09/21/2017 PSYCHIATRIC PROGRESS NOTE This is a late entry for 09/21/2017, covers elements not covered in my initial note. SUBJECTIVE: I met with the patient in the evening. The patient slept 6-3/4 hours previous evening, which is quite an improvement for her. She is still somewhat anxious, more so in the evening, received Xanax x1, but subjectively states anxiety is better. REVIEW OF SYSTEMS: No CV, , pulmonary, eye, ENT system symptoms on review. MENTAL STATUS EXAM: Oriented to herself, situation. Speech coherent, abstraction fair, computation impaired, language function intact. Mood and affect remain somewhat anxious, but improved. LABORATORY DATA: Reviewed. IMPRESSION: Major depressive disorder, recurrent. The patient is somewhat isolative, almost tearful at times in the evening when I met with her; anxiety disorder, unspecified. PLAN: Continue his Paxil, BuSpar, Remeron, Ambien along with Klonopin and Xanax p.r.n. May consider changing Paxil to Cymbalta depending on her progress or may increase the Paxil and consider augmentation with Abilify if needed. PEDRO BLAKELY MD DR: FERNANDA/kaitlin JOB#: [id number] / [id number]
--- NOTE | 2017-09-24 00:44 | PN ---
DATE: 09/22/2017 PSYCHIATRIC PROGRESS NOTE This is a late entry for 09/22/2017, covers elements not covered in my initial note. SUBJECTIVE: I met with the patient in the evening and she was staffed at a treatment team meeting with the entire team in the morning. We reviewed her psychosocial history. The patient lives on the 2nd floor of the [facility], which is an assisted living. 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 She slept 7 hours previous evening. 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 REVIEW OF SYSTEMS: No CV, , pulmonary, eye system symptoms on review. MENTAL STATUS EXAM: Reasonably oriented. Speech coherent, rapid at times. Abstraction fair, computation impaired, language function intact. Mood and affect still depressed, anxious at times almost tearful as I met with her in her room. She tends to isolate. No suicidal ideation. LABORATORY DATA: Reviewed. IMPRESSION: Major depressive disorder, recurrent; anxiety disorder, unspecified. PLAN: Continue current psychotropics. Consider changing Paxil to Cymbalta or augmentation with Abilify. PEDRO BLAKELY MD DR: FERNANDA/kaitlin JOB#: [id number] / [id number]
[2017-09-24 06:28] VITALS: BP 139/66
[2017-09-24] MEDS: CALCIUM CARBONATE 500 MG TABLET PO SCH (07:29)
[2017-09-24] MEDS: busPIRone 10 MG TABLET. PO SCH ×2 (07:30→20:04)
[2017-09-24] MEDS: METOPROLOL SUCC 24HR ER 25 MG TAB.ER.24H. PO SCH (07:30)
[2017-09-24] MEDS: clonazePAM 0.5 MG TABLET PO SCH ×2 (07:33→20:04)
[2017-09-24] MEDS: PARoxetine 10 MG TABLET PO SCH (07:33)
[2017-09-24] MEDS: ALPRAZolam 0.25 MG TABLET PO PRN ×2 (11:51→15:03)
[2017-09-24 16:09] VITALS: BP 132/74
[2017-09-24] MEDS: ZOLPIDEM 5 MG TABLET. PO SCH (20:04)
[2017-09-24] MEDS: MIRTAZAPINE 15 MG TABLET PO SCH (20:04)
--- NOTE | 2017-09-24 22:27 | PDOC ---
Exam Note: Reynaldo Note: Please also refer to the separate dictated note~for this date of service dictated separately.~Patient seen individually. Discussed the patient with Nursing staff reviewed the chart.~Reviewed interim history and current functioning. Reviewed vital signs,~Labs/ Radiology~and current medications noted below. Continue current treatment with the changes noted in the dictated addendum note Assessment: Vital Signs: Vital Signs Date Time Temp Pulse Resp B/P (MAP) Pulse Ox O2 Delivery O2 Flow Rate FiO2 09/24/17 16:09 98.3 81 20 132/74 (93) 98 Room Air I&O Intake and Output 09/24/17 07:01 Intake Total 1320 ml Balance 1320 ml Intake Oral 1320 ml Current Medications: Meds: Current Medications Clonidine HCl (Catapres Tts-2) 1 patch 1X ONCE TD Last administered on at 01:00; Start 09/19/17 at 23:30; Stop 09/20/17 at 02:02; Status DC Clonidine HCl (Catapres) 0.1 mg 1X ONCE PO Last administered on 09/19/17at 01: 00; Start 09/19/17 at 23:30; Stop 09/20/17 at 02:02; Status DC Clonazepam (KlonoPIN) 0.25 mg DAILY PO Last administered on 09/24/17at 07:33; Start 09/20/17 at 09:00 Clonazepam (KlonoPIN) 0.5 mg HS PO Last administered on 09/24/17at 20:04; Start 09/20/17 at 21:00 Nortriptyline HCl (Pamelor) 50 mg HS PO ; Start 09/20/17 at 21:00; Stop at 21:00; Status DC Zolpidem Tartrate (Ambien) 5 mg HS PO Last administered on 09/24/17at 20:04; Start 09/20/17 at 21:00 Buspirone HCl (Buspar) 10 mg BID PO Last administered on 09/24/17at 20:04; Start 09/20/17 at 09:00 Paroxetine HCl (Paxil) 10 mg DAILY PO Last administered on 09/23/17at 08:11; Start 09/20/17 at 09:00; Stop 09/23/17 at 19:20; Status DC Calcium Carbonate/ Glycine (Oscal) 500 mg DAILY PO Last administered on at 07:29; Start 09/20/17 at 09:00 Metoprolol Succinate (Toprol Xl) 12.5 mg DAILY PO Last administered on at 07:30; Start 09/20/17 at 09:00 Acetaminophen (Tylenol) 1,000 mg PRN Q6HRS PRN PO PAIN / TEMP; Start 09/20/17 at 02:15 Acetaminophen (Tylenol) 500 mg PRN Q6HRS PRN PO PAIN / TEMP Last administered on 09/23/17at 02:11; Start 09/20/17 at 02:15 Magnesium Hydroxide (Milk Of Magnesia) 2,400 mg PRN DAILY PRN PO CONSTIPATION; Start 09/20/17 at 02:15 Sennosides (Senna) 8.6 mg PRN DAILY PRN PO CONSTIPATION; Start 09/20/17 at 02: 15 Multi-Ingredient Ointment (Analgesic [place]) 1 joaquim PRN QID PRN TP MUSCLE PAIN; Start 09/20/17 at 02:00 Al Hydroxide/Mg Hydroxide (Mylanta Plus Xs) 15 ml PRN AFTMEALHC PRN PO DYSPEPSIA; Start 09/20/17 at 02:00 Mirtazapine (Remeron) 7.5 mg QHS PO Last administered on 09/22/17at 20:30; Start 09/20/17 at 21:00; Stop 09/23/17 at 19:20; Status DC Alprazolam (Xanax) 0.25 mg PRN Q2HR PRN PO ANXIETY / AGITATION Last administered on 09/24/17at 15:03; Start 09/20/17 at 18:45 Vitamin D (Vitamin D3) 50,000 unit WEEKLY PO Last administered on 09/20/17at 20: 27; Start 09/20/17 at 19:30 Mirtazapine (Remeron) 15 mg QHS PO Last administered on 09/24/17at 20:04; Start 09/23/17 at 21:00 Paroxetine HCl (Paxil) 15 mg DAILY PO Last administered on 09/24/17at 07:33; Start 09/24/17 at 09:00 Active Scripts Active Reported Milk Of Magnesia (Magnesium Hydroxide) 2,400 Mg/10 Ml Oral.susp 2,400 Mg PO PRN DAILY PRN Clonazepam 0.5 Mg Tablet 0.25 Mg PO DAILY Clonazepam 0.5 Mg Tablet 0.5 Mg PO HS Zolpidem Tartrate 5 Mg Tablet 5 Mg PO HS Oyster Shell Calcium (Calcium Carbonate) 500 Mg Tablet 500 Mg PO DAILY Senna (Sennosides) 8.6 Mg Tablet 8.6 Mg PO PRN DAILY PRN Acetaminophen 500 Mg Tablet 1,000 Mg PO PRN Q6HRS PRN Acetaminophen 500 Mg Tablet 500 Mg PO PRN Q4HRS PRN Metoprolol Succinate ( Xl ) (Metoprolol Succinate) 25 Mg Tab.er.24h 12.5 Mg PO DAILY Nortriptyline Hcl 25 Mg Capsule 50 Mg PO HS Buspirone Hcl 10 Mg Tablet 10 Mg PO BID Paroxetine Hcl 10 Mg Tablet 10 Mg PO DAILY I have reviewed the current psychotropics carefully including drug interactions. Risk benefit ratio favors no change other than as noted in my dictated progress note. 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
[2017-09-25] MEDS: ACETAMINOPHEN 500 MG TABLET PO PRN (03:59)
[2017-09-25 06:06] VITALS: BP 136/65
[2017-09-25] MEDS: busPIRone 10 MG TABLET. PO SCH ×2 (08:38→19:36)
[2017-09-25] MEDS: PARoxetine 10 MG TABLET PO SCH (08:38)
[2017-09-25] MEDS: CALCIUM CARBONATE 500 MG TABLET PO SCH (08:38)
[2017-09-25] MEDS: METOPROLOL SUCC 24HR ER 25 MG TAB.ER.24H. PO SCH (08:39)
[2017-09-25] MEDS: clonazePAM 0.5 MG TABLET PO SCH ×2 (08:40→19:37)
[2017-09-25] MEDS: ALPRAZolam 0.25 MG TABLET PO PRN ×2 (11:42→16:03)
[2017-09-25 15:45] VITALS: BP 119/70
[2017-09-25] MEDS: ZOLPIDEM 5 MG TABLET. PO SCH (19:37)
[2017-09-25] MEDS: MIRTAZAPINE 15 MG TABLET PO SCH (19:37)
--- NOTE | 2017-09-25 20:59 | PDOC ---
Exam Note: Reynaldo Note: Please also refer to the separate dictated note~for this date of service dictated separately.~Patient seen individually. Discussed the patient with Nursing staff reviewed the chart.~Reviewed interim history and current functioning. Reviewed vital signs,~Labs/ Radiology~and current medications noted below. Continue current treatment with the changes noted in the dictated addendum note Assessment: Vital Signs: Vital Signs Date Time Temp Pulse Resp B/P (MAP) Pulse Ox O2 Delivery O2 Flow Rate FiO2 09/25/17 15:45 97.8 77 18 119/70 (86) 97 09/24/17 16:09 Room Air I&O Intake and Output 09/25/17 07:01 Intake Total 1445 ml Balance 1445 ml Intake Oral 1445 ml Current Medications: Meds: Current Medications Clonidine HCl (Catapres Tts-2) 1 patch 1X ONCE TD Last administered on at 01:00; Start 09/19/17 at 23:30; Stop 09/20/17 at 02:02; Status DC Clonidine HCl (Catapres) 0.1 mg 1X ONCE PO Last administered on 09/19/17at 01: 00; Start 09/19/17 at 23:30; Stop 09/20/17 at 02:02; Status DC Clonazepam (KlonoPIN) 0.25 mg DAILY PO Last administered on 09/25/17at 08:40; Start 09/20/17 at 09:00 Clonazepam (KlonoPIN) 0.5 mg HS PO Last administered on 09/25/17at 19:37; Start 09/20/17 at 21:00 Nortriptyline HCl (Pamelor) 50 mg HS PO ; Start 09/20/17 at 21:00; Stop at 21:00; Status DC Zolpidem Tartrate (Ambien) 5 mg HS PO Last administered on 09/25/17at 19:37; Start 09/20/17 at 21:00 Buspirone HCl (Buspar) 10 mg BID PO Last administered on 09/25/17at 19:36; Start 09/20/17 at 09:00 Paroxetine HCl (Paxil) 10 mg DAILY PO Last administered on 09/23/17at 08:11; Start 09/20/17 at 09:00; Stop 09/23/17 at 19:20; Status DC Calcium Carbonate/ Glycine (Oscal) 500 mg DAILY PO Last administered on at 08:38; Start 09/20/17 at 09:00 Metoprolol Succinate (Toprol Xl) 12.5 mg DAILY PO Last administered on at 08:39; Start 09/20/17 at 09:00 Acetaminophen (Tylenol) 1,000 mg PRN Q6HRS PRN PO PAIN / TEMP; Start 09/20/17 at 02:15 Acetaminophen (Tylenol) 500 mg PRN Q6HRS PRN PO PAIN / TEMP Last administered on 09/25/17at 03:59; Start 09/20/17 at 02:15 Magnesium Hydroxide (Milk Of Magnesia) 2,400 mg PRN DAILY PRN PO CONSTIPATION; Start 09/20/17 at 02:15 Sennosides (Senna) 8.6 mg PRN DAILY PRN PO CONSTIPATION; Start 09/20/17 at 02: 15 Multi-Ingredient Ointment (Analgesic [place]) 1 joaquim PRN QID PRN TP MUSCLE PAIN; Start 09/20/17 at 02:00 Al Hydroxide/Mg Hydroxide (Mylanta Plus Xs) 15 ml PRN AFTMEALHC PRN PO DYSPEPSIA; Start 09/20/17 at 02:00 Mirtazapine (Remeron) 7.5 mg QHS PO Last administered on 09/22/17at 20:30; Start 09/20/17 at 21:00; Stop 09/23/17 at 19:20; Status DC Alprazolam (Xanax) 0.25 mg PRN Q2HR PRN PO ANXIETY / AGITATION Last administered on 09/25/17at 16:03; Start 09/20/17 at 18:45 Vitamin D (Vitamin D3) 50,000 unit WEEKLY PO Last administered on 09/20/17at 20: 27; Start 09/20/17 at 19:30 Mirtazapine (Remeron) 15 mg QHS PO Last administered on 09/25/17at 19:37; Start 09/23/17 at 21:00 Paroxetine HCl (Paxil) 15 mg DAILY PO Last administered on 09/25/17at 08:38; Start 09/24/17 at 09:00 Active Scripts Active Reported Milk Of Magnesia (Magnesium Hydroxide) 2,400 Mg/10 Ml Oral.susp 2,400 Mg PO PRN DAILY PRN Clonazepam 0.5 Mg Tablet 0.25 Mg PO DAILY Clonazepam 0.5 Mg Tablet 0.5 Mg PO HS Zolpidem Tartrate 5 Mg Tablet 5 Mg PO HS Oyster Shell Calcium (Calcium Carbonate) 500 Mg Tablet 500 Mg PO DAILY Senna (Sennosides) 8.6 Mg Tablet 8.6 Mg PO PRN DAILY PRN Acetaminophen 500 Mg Tablet 1,000 Mg PO PRN Q6HRS PRN Acetaminophen 500 Mg Tablet 500 Mg PO PRN Q4HRS PRN Metoprolol Succinate ( Xl ) (Metoprolol Succinate) 25 Mg Tab.er.24h 12.5 Mg PO DAILY Nortriptyline Hcl 25 Mg Capsule 50 Mg PO HS Buspirone Hcl 10 Mg Tablet 10 Mg PO BID Paroxetine Hcl 10 Mg Tablet 10 Mg PO DAILY I have reviewed the current psychotropics carefully including drug interactions. Risk benefit ratio favors no change other than as noted in my dictated progress note. 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
[2017-09-25] MEDS: traZODone 50 MG TABLET. PO SCH (23:14)
--- NOTE | 2017-09-26 02:27 | PN ---
DATE: 09/23/2017 PSYCHIATRIC PROGRESS NOTE This late entry 09/23/2017, covers elements not covered in my initial note. SUBJECTIVE: Met with the patient in evening of 09/23/2017. The patient slept 4 hours previous evening, woke up at 2:00 a.m. She previously slept quite well after we initiated the Remeron for the first night. Admits to being depressed, still anxious, has needed PRNs twice during the day on 09/23/2017. She had visitors and was tearful after they left. REVIEW OF SYSTEMS: No CV, , pulmonary, eye system symptoms on review. MENTAL STATUS EXAM: Reasonably oriented. Speech is coherent, abstraction fair, computation impaired, language function intact, attention span short. Mood and affect still somewhat dysphoric, anxious. LABORATORY DATA: Reviewed. IMPRESSION: Unchanged from initial note. PLAN: Increased Paxil to 15 mg a day, Remeron to 15 mg at bedtime to help with the insomnia. Rest unchanged. PEDRO BLAKELY MD DR: FERNANDA/kaitlin JOB#: [id number] / [id number]
[2017-09-26 06:21] VITALS: BP 132/64
[2017-09-26] MEDS: clonazePAM 0.5 MG TABLET PO SCH ×2 (08:20→20:00)
[2017-09-26] MEDS: METOPROLOL SUCC 24HR ER 25 MG TAB.ER.24H. PO SCH (08:21)
[2017-09-26] MEDS: busPIRone 10 MG TABLET. PO SCH ×2 (08:21→19:56)
[2017-09-26] MEDS: CALCIUM CARBONATE 500 MG TABLET PO SCH (08:21)
[2017-09-26] MEDS: PARoxetine 10 MG TABLET PO SCH (08:21)
[2017-09-26 08:33] LABS: BASO # 0.1 x10^3/uL (0.0-0.2); BASO % 1 % (0-3); EOS # 0.3 x10^3/uL (0.0-0.7); EOS % 4 % (0-3); HEMOGLOBIN 12.3 g/dL (12.0-15.5); LYMPH % 39 % (24-48); MEAN CORPUSCULAR HEMOGLOBIN 31 pg (25-35); MEAN CORPUSCULAR HGB CONC 33 g/dL (31-37); MEAN CORPUSCULAR VOLUME 94 fL (79-100); MONO % 13 % (0-9); NEUT # 3.3 x10^3uL (1.8-7.7); NEUT % 43 % (31-73); PLATELET COUNT 394 x10^3/uL (140-400); RED BLOOD COUNT 3.94 x10^6/uL (3.50-5.40); RED CELL DISTRIBUTION WIDTH 13.3 % (11.5-14.5); WHITE BLOOD COUNT 7.7 x10^3/uL (4.0-11.0)
[2017-09-26 09:41] LABS: ALBUMIN 3.1 g/dL (3.4-5.0); ALBUMIN/GLOBULIN RATIO 0.8 (1.0-1.7); CALCIUM 8.9 mg/dL (8.5-10.1); CREATININE 0.8 mg/dL (0.6-1.0); GFR 68.2; POTASSIUM 4.1 mmol/L (3.5-5.1); TOTAL BILIRUBIN 0.4 mg/dL (0.2-1.0)
[2017-09-26] MEDS: ALPRAZolam 0.25 MG TABLET PO PRN (10:39)
--- NOTE | 2017-09-26 13:01 | PN ---
DATE: 09/24/2017 PSYCHIATRIC PROGRESS NOTE This is a late entry 09/24/2017, covers elements not covered in my initial note 09/24/2017. SUBJECTIVE: I met with the patient in the evening. The patient states she slept a little better with the Remeron, which was increased to 15 mg at bedtime. REVIEW OF SYSTEMS: She still gets anxious during the day, but no CV, , pulmonary, eye system symptoms on review. MENTAL STATUS EXAM: The patient is reasonably oriented. Speech is coherent, has some latency. Abstraction fair, computation impaired, language function intact, attention span short. Mood and affect remain somewhat anxious, dysphoric. LABORATORY DATA: Reviewed. IMPRESSION: Major depressive disorder, recurrent, in partial remission; anxiety disorder, unspecified ongoing insomnia. PLAN: Continue current psychotropics from initial note. Paxil was increased. We may increase it further or change to Cymbalta and may add trazodone if insomnia resurfaces. PEDRO BLAKELY MD DR: FERNANDA/kaitlin JOB#: [id number] / [id number]
--- NOTE | 2017-09-26 13:04 | PN ---
DATE: 09/25/2017 PSYCHIATRIC PROGRESS NOTE This is a late entry 09/25/2017, covers elements not covered in my initial note 09/25/2017. SUBJECTIVE: I met with the patient in the evening. The patient states she again slept poorly previous evening, woke up at 2:00 a.m., could not sleep after that despite increase of Remeron and this has increased her anxiety. She states she has used Xanax twice during the day on 09/25/2017. REVIEW OF SYSTEMS: No CV, , pulmonary, eye, ENT system symptoms on review. MENTAL STATUS EXAM: Reasonably oriented. Speech is coherent, has some latency. Abstraction fair, computation impaired, language function intact. Mood and affect remains anxious, slightly dysphoric. No psychotic symptoms, suicidal or homicidal ideation. IMPRESSION: Major depressive disorder; anxiety disorder, unspecified. PLAN: Continue psychotropics from initial note including the increased Remeron and the Paxil 15 mg a day. Start trazodone scheduled 50 mg at bedtime. Consider changing Paxil to Cymbalta as a more efficacious antidepressant depending on her progress and maintain Klonopin for now and Xanax p.r.n. PEDRO BLAKELY MD DR: FERNANDA/kaitlin JOB#: [id number] / [id number]
[2017-09-26 16:14] VITALS: BP 128/80
[2017-09-26] MEDS: ZOLPIDEM 5 MG TABLET. PO SCH (19:56)
[2017-09-26] MEDS: traZODone 50 MG TABLET. PO SCH (19:56)
[2017-09-26] MEDS: MIRTAZAPINE 15 MG TABLET PO SCH (20:00)
--- NOTE | 2017-09-26 20:59 | PDOC ---
Exam Note: Reynaldo Note: Please also refer to the separate dictated note~for this date of service dictated separately.~Patient seen individually. Discussed the patient with Nursing staff reviewed the chart.~Reviewed interim history and current functioning. Reviewed vital signs,~Labs/ Radiology~and current medications noted below. Continue current treatment with the changes noted in the dictated addendum note Assessment: Vital Signs: Vital Signs Date Time Temp Pulse Resp B/P (MAP) Pulse Ox O2 Delivery O2 Flow Rate FiO2 09/26/17 16:14 98.2 67 18 128/80 (96) 95 Room Air I&O Intake and Output 09/26/17 07:01 Intake Total 1985 ml Balance 1985 ml Intake Oral 1985 ml Labs: Laboratory Tests Test 09/26/17 07:31 White Blood Count 7.7 x10^3/uL (4.0-11.0) Red Blood Count 3.94 x10^6/uL (3.50-5.40) Hemoglobin 12.3 g/dL (12.0-15.5) Hematocrit 37.0 % (36.0-47.0) Mean Corpuscular Volume 94 fL (79-100) Mean Corpuscular Hemoglobin 31 pg (25-35) Mean Corpuscular Hemoglobin Concent 33 g/dL (31-37) Red Cell Distribution Width 13.3 % (11.5-14.5) Platelet Count 394 x10^3/uL (140-400) Neutrophils (%) (Auto) 43 % (31-73) Lymphocytes (%) (Auto) 39 % (24-48) Monocytes (%) (Auto) 13 % (0-9) H Eosinophils (%) (Auto) 4 % (0-3) H Basophils (%) (Auto) 1 % (0-3) Neutrophils # (Auto) 3.3 x10^3uL (1.8-7.7) Lymphocytes # (Auto) 3.0 x10^3/uL (1.0-4.8) Monocytes # (Auto) 1.0 x10^3/uL (0.0-1.1) Eosinophils # (Auto) 0.3 x10^3/uL (0.0-0.7) Basophils # (Auto) 0.1 x10^3/uL (0.0-0.2) Sodium Level 141 mmol/L (136-145) Potassium Level 4.1 mmol/L (3.5-5.1) Chloride Level 102 mmol/L (98-107) Carbon Dioxide Level 34 mmol/L (21-32) H Anion Gap 5 (6-14) L Blood Urea Nitrogen 16 mg/dL (7-20) Creatinine 0.8 mg/dL (0.6-1.0) Estimated GFR (Cockcroft-Gault) 68.2 BUN/Creatinine Ratio 20 (6-20) Glucose Level 89 mg/dL (70-99) Calcium Level 8.9 mg/dL (8.5-10.1) Total Bilirubin 0.4 mg/dL (0.2-1.0) Aspartate Amino Transferase (AST) 13 U/L (15-37) L Alanine Aminotransferase (ALT) 18 U/L (14-59) Alkaline Phosphatase 73 U/L (46-116) Total Protein 7.0 g/dL (6.4-8.2) Albumin 3.1 g/dL (3.4-5.0) L Albumin/Globulin Ratio 0.8 (1.0-1.7) L Current Medications: Meds: Current Medications Clonidine HCl (Catapres Tts-2) 1 patch 1X ONCE TD Last administered on at 01:00; Start 09/19/17 at 23:30; Stop 09/20/17 at 02:02; Status DC Clonidine HCl (Catapres) 0.1 mg 1X ONCE PO Last administered on 09/19/17at 01: 00; Start 09/19/17 at 23:30; Stop 09/20/17 at 02:02; Status DC Clonazepam (KlonoPIN) 0.25 mg DAILY PO Last administered on 09/26/17at 08:20; Start 09/20/17 at 09:00 Clonazepam (KlonoPIN) 0.5 mg HS PO Last administered on 09/26/17at 20:00; Start 09/20/17 at 21:00 Nortriptyline HCl (Pamelor) 50 mg HS PO ; Start 09/20/17 at 21:00; Stop at 21:00; Status DC Zolpidem Tartrate (Ambien) 5 mg HS PO Last administered on 09/26/17at 19:56; Start 09/20/17 at 21:00 Buspirone HCl (Buspar) 10 mg BID PO Last administered on 09/26/17at 19:56; Start 09/20/17 at 09:00 Paroxetine HCl (Paxil) 10 mg DAILY PO Last administered on 09/23/17at 08:11; Start 09/20/17 at 09:00; Stop 09/23/17 at 19:20; Status DC Calcium Carbonate/ Glycine (Oscal) 500 mg DAILY PO Last administered on at 08:21; Start 09/20/17 at 09:00 Metoprolol Succinate (Toprol Xl) 12.5 mg DAILY PO Last administered on at 08:21; Start 09/20/17 at 09:00 Acetaminophen (Tylenol) 1,000 mg PRN Q6HRS PRN PO PAIN / TEMP; Start 09/20/17 at 02:15 Acetaminophen (Tylenol) 500 mg PRN Q6HRS PRN PO PAIN / TEMP Last administered on 09/25/17at 03:59; Start 09/20/17 at 02:15 Magnesium Hydroxide (Milk Of Magnesia) 2,400 mg PRN DAILY PRN PO CONSTIPATION; Start 09/20/17 at 02:15 Sennosides (Senna) 8.6 mg PRN DAILY PRN PO CONSTIPATION; Start 09/20/17 at 02: 15 Multi-Ingredient Ointment (Analgesic [place]) 1 joaquim PRN QID PRN TP MUSCLE PAIN; Start 09/20/17 at 02:00 Al Hydroxide/Mg Hydroxide (Mylanta Plus Xs) 15 ml PRN AFTMEALHC PRN PO DYSPEPSIA; Start 09/20/17 at 02:00 Mirtazapine (Remeron) 7.5 mg QHS PO Last administered on 09/22/17at 20:30; Start 09/20/17 at 21:00; Stop 09/23/17 at 19:20; Status DC Alprazolam (Xanax) 0.25 mg PRN Q2HR PRN PO ANXIETY / AGITATION Last administered on 09/26/17at 10:39; Start 09/20/17 at 18:45 Vitamin D (Vitamin D3) 50,000 unit WEEKLY PO Last administered on 09/20/17at 20: 27; Start 09/20/17 at 19:30 Mirtazapine (Remeron) 15 mg QHS PO Last administered on 09/26/17at 20:00; Start 09/23/17 at 21:00 Paroxetine HCl (Paxil) 15 mg DAILY PO Last administered on 09/26/17at 08:21; Start 09/24/17 at 09:00; Stop 09/26/17 at 18:43; Status DC Trazodone HCl (Desyrel) 50 mg QHS PO ; Start 09/26/17 at 21:00; Stop 09/26/17 at 21:00; Status DC Trazodone HCl (Desyrel) 50 mg QHS PO Last administered on 09/26/17at 19:56; Start 09/25/17 at 23:00 Duloxetine HCl (Cymbalta) 30 mg DAILY PO ; Start 09/27/17 at 09:00; Stop at 18:00 Duloxetine HCl (Cymbalta) 60 mg DAILY PO ; Start 09/30/17 at 09:00 Active Scripts Active Reported Milk Of Magnesia (Magnesium Hydroxide) 2,400 Mg/10 Ml Oral.susp 2,400 Mg PO PRN DAILY PRN Clonazepam 0.5 Mg Tablet 0.25 Mg PO DAILY Clonazepam 0.5 Mg Tablet 0.5 Mg PO HS Zolpidem Tartrate 5 Mg Tablet 5 Mg PO HS Oyster Shell Calcium (Calcium Carbonate) 500 Mg Tablet 500 Mg PO DAILY Senna (Sennosides) 8.6 Mg Tablet 8.6 Mg PO PRN DAILY PRN Acetaminophen 500 Mg Tablet 1,000 Mg PO PRN Q6HRS PRN Acetaminophen 500 Mg Tablet 500 Mg PO PRN Q4HRS PRN Metoprolol Succinate ( Xl ) (Metoprolol Succinate) 25 Mg Tab.er.24h 12.5 Mg PO DAILY Nortriptyline Hcl 25 Mg Capsule 50 Mg PO HS Buspirone Hcl 10 Mg Tablet 10 Mg PO BID Paroxetine Hcl 10 Mg Tablet 10 Mg PO DAILY I have reviewed the current psychotropics carefully including drug interactions. Risk benefit ratio favors no change other than as noted in my dictated progress note. 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
[2017-09-26] MEDS ORDERED: traZODone 50 MG TABLET. PO SCH (21:00)
[2017-09-27 06:06] VITALS: BP 116/79
[2017-09-27] MEDS: METOPROLOL SUCC 24HR ER 25 MG TAB.ER.24H. PO SCH (07:59)
[2017-09-27] MEDS: CALCIUM CARBONATE 500 MG TABLET PO SCH (07:59)
[2017-09-27] MEDS: CHOLECALCIFEROL (VITAMIN D3) 50,000 UNIT CAPSULE PO SCH (08:00)
[2017-09-27] MEDS: busPIRone 10 MG TABLET. PO SCH ×2 (08:00→19:54)
[2017-09-27] MEDS: DULoxetine HCL 30 MG CAPSULE.DR PO SCH (08:02)
[2017-09-27] MEDS: clonazePAM 0.5 MG TABLET PO SCH ×2 (08:02→19:58)
[2017-09-27 15:50] VITALS: BP 109/65
[2017-09-27] MEDS: MIRTAZAPINE 15 MG TABLET PO SCH (19:54)
[2017-09-27] MEDS: traZODone 50 MG TABLET. PO SCH (19:54)
[2017-09-27] MEDS: ZOLPIDEM 5 MG TABLET. PO SCH (19:57)
--- NOTE | 2017-09-27 20:55 | PN ---
DATE: 09/27/2017 This is a late entry, 09/26/2017, covers the elements not covered in my initial note. SUBJECTIVE: I met with the patient in the evening. Overall, the patient states she slept better previous evening for 6 hours with the added trazodone, has done well during the day on 09/26/2017, but got anxious around 10:40 a.m., received Xanax. She states she feels depressed, but feels the anxiety is better. REVIEW OF SYSTEMS: No CV, , pulmonary, eye, ENT system symptoms on review. MENTAL STATUS EXAM: Reasonably oriented. Speech coherent, pleasant, verbal. Abstraction fair, computation somewhat impaired, language function intact, attention span fair. Mood and affect dysphoric, but the anxiety is better. No suicidal or homicidal ideation. LABORATORY DATA: Reviewed. IMPRESSION: Unchanged from initial note. PLAN: The patient is not responding to Paxil adequately. We will change this to Cymbalta 30 mg a day for 3 days, increasing to 60 mg a day. Continue rest unchanged per initial note. MAN Lulú BLAKELY MD DR: FERNANDA/kaitlin JOB#: [id number] / [id number]
--- NOTE | 2017-09-27 20:59 | PDOC ---
Exam Note: Reynaldo Note: Please also refer to the separate dictated note~for this date of service dictated separately.~Patient seen individually. Discussed the patient with Nursing staff reviewed the chart.~Reviewed interim history and current functioning. Reviewed vital signs,~Labs/ Radiology~and current medications noted below. Continue current treatment with the changes noted in the dictated addendum note Assessment: Vital Signs: Vital Signs Date Time Temp Pulse Resp B/P (MAP) Pulse Ox O2 Delivery O2 Flow Rate FiO2 09/27/17 15:50 97.7 70 18 109/65 (80) 96 09/26/17 16:14 Room Air I&O Intake and Output 09/27/17 07:00 Intake Total 1560 ml Balance 1560 ml Intake Oral 1560 ml Current Medications: Meds: Current Medications Clonidine HCl (Catapres Tts-2) 1 patch 1X ONCE TD Last administered on at 01:00; Start 09/19/17 at 23:30; Stop 09/20/17 at 02:02; Status DC Clonidine HCl (Catapres) 0.1 mg 1X ONCE PO Last administered on 09/19/17at 01: 00; Start 09/19/17 at 23:30; Stop 09/20/17 at 02:02; Status DC Clonazepam (KlonoPIN) 0.25 mg DAILY PO Last administered on 09/27/17at 08:02; Start 09/20/17 at 09:00 Clonazepam (KlonoPIN) 0.5 mg HS PO Last administered on 09/27/17at 19:58; Start 09/20/17 at 21:00 Nortriptyline HCl (Pamelor) 50 mg HS PO ; Start 09/20/17 at 21:00; Stop at 21:00; Status DC Zolpidem Tartrate (Ambien) 5 mg HS PO Last administered on 09/27/17at 19:57; Start 09/20/17 at 21:00 Buspirone HCl (Buspar) 10 mg BID PO Last administered on 09/27/17at 19:54; Start 09/20/17 at 09:00 Paroxetine HCl (Paxil) 10 mg DAILY PO Last administered on 09/23/17at 08:11; Start 09/20/17 at 09:00; Stop 09/23/17 at 19:20; Status DC Calcium Carbonate/ Glycine (Oscal) 500 mg DAILY PO Last administered on at 07:59; Start 09/20/17 at 09:00 Metoprolol Succinate (Toprol Xl) 12.5 mg DAILY PO Last administered on at 07:59; Start 09/20/17 at 09:00 Acetaminophen (Tylenol) 1,000 mg PRN Q6HRS PRN PO PAIN / TEMP; Start 09/20/17 at 02:15 Acetaminophen (Tylenol) 500 mg PRN Q6HRS PRN PO PAIN / TEMP Last administered on 09/25/17at 03:59; Start 09/20/17 at 02:15 Magnesium Hydroxide (Milk Of Magnesia) 2,400 mg PRN DAILY PRN PO CONSTIPATION; Start 09/20/17 at 02:15 Sennosides (Senna) 8.6 mg PRN DAILY PRN PO CONSTIPATION; Start 09/20/17 at 02: 15 Multi-Ingredient Ointment (Analgesic [place]) 1 joaquim PRN QID PRN TP MUSCLE PAIN; Start 09/20/17 at 02:00 Al Hydroxide/Mg Hydroxide (Mylanta Plus Xs) 15 ml PRN AFTMEALHC PRN PO DYSPEPSIA; Start 09/20/17 at 02:00 Mirtazapine (Remeron) 7.5 mg QHS PO Last administered on 09/22/17at 20:30; Start 09/20/17 at 21:00; Stop 09/23/17 at 19:20; Status DC Alprazolam (Xanax) 0.25 mg PRN Q2HR PRN PO ANXIETY / AGITATION Last administered on 09/26/17at 10:39; Start 09/20/17 at 18:45 Vitamin D (Vitamin D3) 50,000 unit WEEKLY PO Last administered on 09/27/17at 08: 00; Start 09/20/17 at 19:30 Mirtazapine (Remeron) 15 mg QHS PO Last administered on 09/27/17at 19:54; Start 09/23/17 at 21:00 Paroxetine HCl (Paxil) 15 mg DAILY PO Last administered on 09/26/17at 08:21; Start 09/24/17 at 09:00; Stop 09/26/17 at 18:43; Status DC Trazodone HCl (Desyrel) 50 mg QHS PO ; Start 09/26/17 at 21:00; Stop 09/26/17 at 21:00; Status DC Trazodone HCl (Desyrel) 50 mg QHS PO Last administered on 09/27/17at 19:54; Start 09/25/17 at 23:00 Duloxetine HCl (Cymbalta) 30 mg DAILY PO Last administered on 09/27/17at 08:02; Start 09/27/17 at 09:00; Stop 09/29/17 at 18:00 Duloxetine HCl (Cymbalta) 60 mg DAILY PO ; Start 09/30/17 at 09:00 Active Scripts Active Reported Milk Of Magnesia (Magnesium Hydroxide) 2,400 Mg/10 Ml Oral.susp 2,400 Mg PO PRN DAILY PRN Clonazepam 0.5 Mg Tablet 0.25 Mg PO DAILY Clonazepam 0.5 Mg Tablet 0.5 Mg PO HS Zolpidem Tartrate 5 Mg Tablet 5 Mg PO HS Oyster Shell Calcium (Calcium Carbonate) 500 Mg Tablet 500 Mg PO DAILY Senna (Sennosides) 8.6 Mg Tablet 8.6 Mg PO PRN DAILY PRN Acetaminophen 500 Mg Tablet 1,000 Mg PO PRN Q6HRS PRN Acetaminophen 500 Mg Tablet 500 Mg PO PRN Q4HRS PRN Metoprolol Succinate ( Xl ) (Metoprolol Succinate) 25 Mg Tab.er.24h 12.5 Mg PO DAILY Nortriptyline Hcl 25 Mg Capsule 50 Mg PO HS Buspirone Hcl 10 Mg Tablet 10 Mg PO BID Paroxetine Hcl 10 Mg Tablet 10 Mg PO DAILY I have reviewed the current psychotropics carefully including drug interactions. Risk benefit ratio favors no change other than as noted in my dictated progress note. 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
[2017-09-28 06:00] VITALS: BP 123/63
[2017-09-28] MEDS: busPIRone 10 MG TABLET. PO SCH ×2 (08:50→19:21)
[2017-09-28] MEDS: DULoxetine HCL 30 MG CAPSULE.DR PO SCH (08:50)
[2017-09-28] MEDS: METOPROLOL SUCC 24HR ER 25 MG TAB.ER.24H. PO SCH (08:50)
[2017-09-28] MEDS: CALCIUM CARBONATE 500 MG TABLET PO SCH (08:50)
[2017-09-28] MEDS: clonazePAM 0.5 MG TABLET PO SCH ×2 (08:52→19:24)
[2017-09-28] MEDS: ALPRAZolam 0.25 MG TABLET PO PRN (10:46)
--- NOTE | 2017-09-28 13:32 | PN ---
DATE: 09/27/2017 This is a late entry 09/27/2017 covers the elements not covered in my initial note. I met with the patient evening of 09/27/2017. The patient slept 7-1/2 hours previous evening. She complains of her head feeling stuffed in the morning, possibly since she started the trazodone. We will watch this over the next 1-2 days and this should disappear. Still admits to feeling depressed, takes an occasional Xanax for anxiety. She feels her anxiety is better, but depression is a problem subjectively for her. REVIEW OF SYSTEMS: No CV, , pulmonary, eye, ENT system symptoms on review. MENTAL STATUS EXAM: The patient is well oriented. Speech has some latency, coherent. Abstraction fair, computation impaired, language function intact. Attention span somewhat short. Mood and affect dysphoric, anxious but showing improvement. No suicidal or homicidal ideation. LABORATORY DATA: Reviewed. IMPRESSION: Major depressive disorder in partial remission; anxiety disorder, unspecified. PLAN: Change the Paxil to Cymbalta 30 mg a day, increasing to 60 mg a day on the . Maintain Ambien 5 mg at bedtime, BuSpar 10 mg b.i.d., Remeron 15 mg at bedtime, Klonopin 0.5 mg at bedtime and 0.25 mg in the morning, trazodone 50 mg at bedtime. We will make further adjustments as clinically indicated. PEDRO BLAKELY MD DR: FERNANDA/kaitlin JOB#: [id number] / [id number]
[2017-09-28 17:06] VITALS: BP 119/56
[2017-09-28] MEDS: traZODone 50 MG TABLET. PO SCH (19:22)
[2017-09-28] MEDS: MIRTAZAPINE 15 MG TABLET PO SCH (19:22)
[2017-09-28] MEDS: ZOLPIDEM 5 MG TABLET. PO SCH (19:24)
--- NOTE | 2017-09-28 20:48 | PDOC ---
Exam Note: Reynaldo Note: Please also refer to the separate dictated note~for this date of service dictated separately.~Patient seen individually. Discussed the patient with Nursing staff reviewed the chart.~Reviewed interim history and current functioning. Reviewed vital signs,~Labs/ Radiology~and current medications noted below. Continue current treatment with the changes noted in the dictated addendum note Assessment: Vital Signs: Vital Signs Date Time Temp Pulse Resp B/P (MAP) Pulse Ox O2 Delivery O2 Flow Rate FiO2 09/28/17 17:06 98.0 70 18 119/56 (77) 98 09/26/17 16:14 Room Air I&O Intake and Output 09/28/17 07:00 Intake Total 1580 ml Balance 1580 ml Intake Oral 1580 ml Current Medications: Meds: Current Medications Clonidine HCl (Catapres Tts-2) 1 patch 1X ONCE TD Last administered on at 01:00; Start 09/19/17 at 23:30; Stop 09/20/17 at 02:02; Status DC Clonidine HCl (Catapres) 0.1 mg 1X ONCE PO Last administered on 09/19/17at 01: 00; Start 09/19/17 at 23:30; Stop 09/20/17 at 02:02; Status DC Clonazepam (KlonoPIN) 0.25 mg DAILY PO Last administered on 09/28/17at 08:52; Start 09/20/17 at 09:00 Clonazepam (KlonoPIN) 0.5 mg HS PO Last administered on 09/28/17at 19:24; Start 09/20/17 at 21:00 Nortriptyline HCl (Pamelor) 50 mg HS PO ; Start 09/20/17 at 21:00; Stop at 21:00; Status DC Zolpidem Tartrate (Ambien) 5 mg HS PO Last administered on 09/28/17at 19:24; Start 09/20/17 at 21:00 Buspirone HCl (Buspar) 10 mg BID PO Last administered on 09/28/17at 19:21; Start 09/20/17 at 09:00 Paroxetine HCl (Paxil) 10 mg DAILY PO Last administered on 09/23/17at 08:11; Start 09/20/17 at 09:00; Stop 09/23/17 at 19:20; Status DC Calcium Carbonate/ Glycine (Oscal) 500 mg DAILY PO Last administered on at 08:50; Start 09/20/17 at 09:00 Metoprolol Succinate (Toprol Xl) 12.5 mg DAILY PO Last administered on at 08:50; Start 09/20/17 at 09:00 Acetaminophen (Tylenol) 1,000 mg PRN Q6HRS PRN PO PAIN / TEMP; Start 09/20/17 at 02:15 Acetaminophen (Tylenol) 500 mg PRN Q6HRS PRN PO PAIN / TEMP Last administered on 09/25/17at 03:59; Start 09/20/17 at 02:15 Magnesium Hydroxide (Milk Of Magnesia) 2,400 mg PRN DAILY PRN PO CONSTIPATION; Start 09/20/17 at 02:15 Sennosides (Senna) 8.6 mg PRN DAILY PRN PO CONSTIPATION; Start 09/20/17 at 02: 15 Multi-Ingredient Ointment (Analgesic [place]) 1 joaquim PRN QID PRN TP MUSCLE PAIN; Start 09/20/17 at 02:00 Al Hydroxide/Mg Hydroxide (Mylanta Plus Xs) 15 ml PRN AFTMEALHC PRN PO DYSPEPSIA; Start 09/20/17 at 02:00 Mirtazapine (Remeron) 7.5 mg QHS PO Last administered on 09/22/17at 20:30; Start 09/20/17 at 21:00; Stop 09/23/17 at 19:20; Status DC Alprazolam (Xanax) 0.25 mg PRN Q2HR PRN PO ANXIETY / AGITATION Last administered on 09/28/17at 10:46; Start 09/20/17 at 18:45 Vitamin D (Vitamin D3) 50,000 unit WEEKLY PO Last administered on 09/27/17at 08: 00; Start 09/20/17 at 19:30 Mirtazapine (Remeron) 15 mg QHS PO Last administered on 09/28/17at 19:22; Start 09/23/17 at 21:00 Paroxetine HCl (Paxil) 15 mg DAILY PO Last administered on 09/26/17at 08:21; Start 09/24/17 at 09:00; Stop 09/26/17 at 18:43; Status DC Trazodone HCl (Desyrel) 50 mg QHS PO ; Start 09/26/17 at 21:00; Stop 09/26/17 at 21:00; Status DC Trazodone HCl (Desyrel) 50 mg QHS PO Last administered on 09/28/17at 19:22; Start 09/25/17 at 23:00 Duloxetine HCl (Cymbalta) 30 mg DAILY PO Last administered on 09/28/17at 08:50; Start 09/27/17 at 09:00; Stop 09/29/17 at 18:00 Duloxetine HCl (Cymbalta) 60 mg DAILY PO ; Start 09/30/17 at 09:00 Active Scripts Active Reported Milk Of Magnesia (Magnesium Hydroxide) 2,400 Mg/10 Ml Oral.susp 2,400 Mg PO PRN DAILY PRN Clonazepam 0.5 Mg Tablet 0.25 Mg PO DAILY Clonazepam 0.5 Mg Tablet 0.5 Mg PO HS Zolpidem Tartrate 5 Mg Tablet 5 Mg PO HS Oyster Shell Calcium (Calcium Carbonate) 500 Mg Tablet 500 Mg PO DAILY Senna (Sennosides) 8.6 Mg Tablet 8.6 Mg PO PRN DAILY PRN Acetaminophen 500 Mg Tablet 1,000 Mg PO PRN Q6HRS PRN Acetaminophen 500 Mg Tablet 500 Mg PO PRN Q4HRS PRN Metoprolol Succinate ( Xl ) (Metoprolol Succinate) 25 Mg Tab.er.24h 12.5 Mg PO DAILY Nortriptyline Hcl 25 Mg Capsule 50 Mg PO HS Buspirone Hcl 10 Mg Tablet 10 Mg PO BID Paroxetine Hcl 10 Mg Tablet 10 Mg PO DAILY I have reviewed the current psychotropics carefully including drug interactions. Risk benefit ratio favors no change other than as noted in my dictated progress note. 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
[2017-09-29 05:51] VITALS: BP 127/76
[2017-09-29] MEDS: METOPROLOL SUCC 24HR ER 25 MG TAB.ER.24H. PO SCH (09:52)
[2017-09-29] MEDS: CALCIUM CARBONATE 500 MG TABLET PO SCH (09:52)
[2017-09-29] MEDS: DULoxetine HCL 30 MG CAPSULE.DR PO SCH (09:53)
[2017-09-29] MEDS: busPIRone 10 MG TABLET. PO SCH ×2 (09:53→20:07)
[2017-09-29] MEDS: clonazePAM 0.5 MG TABLET PO SCH ×2 (09:59→20:07)
[2017-09-29 16:03] VITALS: BP 143/72
--- NOTE | 2017-09-29 19:11 | PN ---
DATE: 09/28/2017 This is a late entry 09/28/2017 covers the elements not covered in my initial note. SUBJECTIVE: I met with the patient in the evening and staffed at a treatment team meeting with the entire team in the morning. The patient has a good appetite 100%, slept 7-1/2 hours previous evening. Subjectively, states she feels much better, compliant with medications. REVIEW OF SYSTEMS: No CV, , pulmonary, eye system symptoms on review. MENTAL STATUS EXAM: Reasonably oriented. Speech has some latency, coherent. Abstraction fair, computation impaired, language function intact, attention span short. Mood and affect still somewhat anxious, dysphoric. LABORATORY DATA: Reviewed. IMPRESSION: Unchanged from initial note. PLAN: Paxil is being changed to Cymbalta 30 mg a day, increasing to 60 mg a day. Continue rest unchanged. She has used Xanax once during the day, 09/28/2017, for anxiety. PEDRO BLAKELY MD DR: FERNANDA/kaitlin JOB#: [id number] / [id number]
[2017-09-29] MEDS: traZODone 50 MG TABLET. PO SCH (20:07)
[2017-09-29] MEDS: MIRTAZAPINE 15 MG TABLET PO SCH (20:07)
[2017-09-29] MEDS: ZOLPIDEM 5 MG TABLET. PO SCH (20:07)
--- NOTE | 2017-09-29 20:46 | PDOC ---
Exam Note: Reynaldo Note: Please also refer to the separate dictated note~for this date of service dictated separately.~Patient seen individually. Discussed the patient with Nursing staff reviewed the chart.~Reviewed interim history and current functioning. Reviewed vital signs,~Labs/ Radiology~and current medications noted below. Continue current treatment with the changes noted in the dictated addendum note Assessment: Vital Signs: Vital Signs Date Time Temp Pulse Resp B/P (MAP) Pulse Ox O2 Delivery O2 Flow Rate FiO2 09/29/17 16:03 98.0 74 16 143/72 (95) 95 09/26/17 16:14 Room Air I&O Intake and Output 09/29/17 07:00 Intake Total 1820 ml Balance 1820 ml Intake Oral 1820 ml Current Medications: Meds: Current Medications Clonidine HCl (Catapres Tts-2) 1 patch 1X ONCE TD Last administered on at 01:00; Start 09/19/17 at 23:30; Stop 09/20/17 at 02:02; Status DC Clonidine HCl (Catapres) 0.1 mg 1X ONCE PO Last administered on 09/19/17at 01: 00; Start 09/19/17 at 23:30; Stop 09/20/17 at 02:02; Status DC Clonazepam (KlonoPIN) 0.25 mg DAILY PO Last administered on 09/29/17at 09:59; Start 09/20/17 at 09:00 Clonazepam (KlonoPIN) 0.5 mg HS PO Last administered on 09/29/17at 20:07; Start 09/20/17 at 21:00 Nortriptyline HCl (Pamelor) 50 mg HS PO ; Start 09/20/17 at 21:00; Stop at 21:00; Status DC Zolpidem Tartrate (Ambien) 5 mg HS PO Last administered on 09/29/17at 20:07; Start 09/20/17 at 21:00 Buspirone HCl (Buspar) 10 mg BID PO Last administered on 09/29/17at 20:07; Start 09/20/17 at 09:00 Paroxetine HCl (Paxil) 10 mg DAILY PO Last administered on 09/23/17at 08:11; Start 09/20/17 at 09:00; Stop 09/23/17 at 19:20; Status DC Calcium Carbonate/ Glycine (Oscal) 500 mg DAILY PO Last administered on at 09:52; Start 09/20/17 at 09:00 Metoprolol Succinate (Toprol Xl) 12.5 mg DAILY PO Last administered on at 09:52; Start 09/20/17 at 09:00 Acetaminophen (Tylenol) 1,000 mg PRN Q6HRS PRN PO PAIN / TEMP; Start 09/20/17 at 02:15 Acetaminophen (Tylenol) 500 mg PRN Q6HRS PRN PO PAIN / TEMP Last administered on 09/25/17at 03:59; Start 09/20/17 at 02:15 Magnesium Hydroxide (Milk Of Magnesia) 2,400 mg PRN DAILY PRN PO CONSTIPATION; Start 09/20/17 at 02:15 Sennosides (Senna) 8.6 mg PRN DAILY PRN PO CONSTIPATION; Start 09/20/17 at 02: 15 Multi-Ingredient Ointment (Analgesic [place]) 1 joaquim PRN QID PRN TP MUSCLE PAIN; Start 09/20/17 at 02:00 Al Hydroxide/Mg Hydroxide (Mylanta Plus Xs) 15 ml PRN AFTMEALHC PRN PO DYSPEPSIA; Start 09/20/17 at 02:00 Mirtazapine (Remeron) 7.5 mg QHS PO Last administered on 09/22/17at 20:30; Start 09/20/17 at 21:00; Stop 09/23/17 at 19:20; Status DC Alprazolam (Xanax) 0.25 mg PRN Q2HR PRN PO ANXIETY / AGITATION Last administered on 09/28/17at 10:46; Start 09/20/17 at 18:45 Vitamin D (Vitamin D3) 50,000 unit WEEKLY PO Last administered on 09/27/17at 08: 00; Start 09/20/17 at 19:30 Mirtazapine (Remeron) 15 mg QHS PO Last administered on 09/29/17at 20:07; Start 09/23/17 at 21:00 Paroxetine HCl (Paxil) 15 mg DAILY PO Last administered on 09/26/17at 08:21; Start 09/24/17 at 09:00; Stop 09/26/17 at 18:43; Status DC Trazodone HCl (Desyrel) 50 mg QHS PO ; Start 09/26/17 at 21:00; Stop 09/26/17 at 21:00; Status DC Trazodone HCl (Desyrel) 50 mg QHS PO Last administered on 09/29/17at 20:07; Start 09/25/17 at 23:00 Duloxetine HCl (Cymbalta) 30 mg DAILY PO Last administered on 09/29/17at 09:53; Start 09/27/17 at 09:00; Stop 09/29/17 at 18:00; Status DC Duloxetine HCl (Cymbalta) 60 mg DAILY PO ; Start 09/30/17 at 09:00 Active Scripts Active Reported Milk Of Magnesia (Magnesium Hydroxide) 2,400 Mg/10 Ml Oral.susp 2,400 Mg PO PRN DAILY PRN Clonazepam 0.5 Mg Tablet 0.25 Mg PO DAILY Clonazepam 0.5 Mg Tablet 0.5 Mg PO HS Zolpidem Tartrate 5 Mg Tablet 5 Mg PO HS Oyster Shell Calcium (Calcium Carbonate) 500 Mg Tablet 500 Mg PO DAILY Senna (Sennosides) 8.6 Mg Tablet 8.6 Mg PO PRN DAILY PRN Acetaminophen 500 Mg Tablet 1,000 Mg PO PRN Q6HRS PRN Acetaminophen 500 Mg Tablet 500 Mg PO PRN Q4HRS PRN Metoprolol Succinate ( Xl ) (Metoprolol Succinate) 25 Mg Tab.er.24h 12.5 Mg PO DAILY Nortriptyline Hcl 25 Mg Capsule 50 Mg PO HS Buspirone Hcl 10 Mg Tablet 10 Mg PO BID Paroxetine Hcl 10 Mg Tablet 10 Mg PO DAILY I have reviewed the current psychotropics carefully including drug interactions. Risk benefit ratio favors no change other than as noted in my dictated progress note. Diagnosis: Problems: (1) Anxiety disorder (2) Major depressive disorder, recurrent episode (3) Panic disorder with agoraphobia and severe panic attacks PEDRO BLAKELY MD Sep 29, 2017 20:46
[2017-09-30 05:44] VITALS: BP 134/68
[2017-09-30] MEDS: DULoxetine HCL 60 MG CAPSULE.DR PO SCH (08:25)
[2017-09-30] MEDS: busPIRone 10 MG TABLET. PO SCH ×2 (08:25→20:00)
[2017-09-30] MEDS: METOPROLOL SUCC 24HR ER 25 MG TAB.ER.24H. PO SCH (08:25)
[2017-09-30] MEDS: CALCIUM CARBONATE 500 MG TABLET PO SCH (08:26)
[2017-09-30] MEDS: clonazePAM 0.5 MG TABLET PO SCH ×2 (08:26→20:00)
[2017-09-30 16:05] VITALS: BP 139/72
--- NOTE | 2017-09-30 18:29 | PN ---
DATE: 09/29/2017 This is a late entry 09/29/2017 covers the elements not covered in my initial note. SUBJECTIVE: I met with the patient in the evening. The patient slept 7-3/4 hours previous evening. She has had no Xanax during the day. Three of her sisters from the [facility] visited and I met with the director for the [facility] sent about the patient's progress as well. REVIEW OF SYSTEM: No CV, , pulmonary, eye system symptoms on review. MENTAL STATUS EXAM: Reasonably oriented. Speech is coherent, has some latency. Abstraction fair, computation somewhat impaired, language function intact, attention span short. Mood and affect showing improvement. The patient states she feels a little depressed but Paxil is being changed to Cymbalta and I have reassured her that over time this should improve. LABORATORY DATA: Reviewed. IMPRESSION: Major depressive disorder in partial remission; anxiety disorder, unspecified. Rest unchanged. PLAN: Continue current psychotropics from initial note, gradually increase Cymbalta to 60 mg at bedtime. MAN Lulú BLAKEYL MD DR: FERNANDA/kaitlin JOB#: [id number] / [id number]
[2017-09-30] MEDS: ZOLPIDEM 5 MG TABLET. PO SCH (20:00)
[2017-09-30] MEDS: MIRTAZAPINE 15 MG TABLET PO SCH (20:00)
[2017-09-30] MEDS: traZODone 50 MG TABLET. PO SCH (20:00)
--- NOTE | 2017-09-30 20:46 | PDOC ---
Exam Note: Reynaldo Note: Please also refer to the separate dictated note~for this date of service dictated separately.~Patient seen individually. Discussed the patient with Nursing staff reviewed the chart.~Reviewed interim history and current functioning. Reviewed vital signs,~Labs/ Radiology~and current medications noted below. Continue current treatment with the changes noted in the dictated addendum note Assessment: Vital Signs: Vital Signs Date Time Temp Pulse Resp B/P (MAP) Pulse Ox O2 Delivery O2 Flow Rate FiO2 09/30/17 16:05 97.4 84 18 139/72 (94) 97 09/26/17 16:14 Room Air I&O Intake and Output 09/30/17 07:00 Intake Total 1440 ml Balance 1440 ml Intake Oral 1440 ml Current Medications: Meds: Current Medications Clonidine HCl (Catapres Tts-2) 1 patch 1X ONCE TD Last administered on at 01:00; Start 09/19/17 at 23:30; Stop 09/20/17 at 02:02; Status DC Clonidine HCl (Catapres) 0.1 mg 1X ONCE PO Last administered on 09/19/17at 01: 00; Start 09/19/17 at 23:30; Stop 09/20/17 at 02:02; Status DC Clonazepam (KlonoPIN) 0.25 mg DAILY PO Last administered on 09/29/17at 09:59; Start 09/20/17 at 09:00 Clonazepam (KlonoPIN) 0.5 mg HS PO Last administered on 09/30/17at 20:00; Start 09/20/17 at 21:00 Nortriptyline HCl (Pamelor) 50 mg HS PO ; Start 09/20/17 at 21:00; Stop at 21:00; Status DC Zolpidem Tartrate (Ambien) 5 mg HS PO Last administered on 09/30/17at 20:00; Start 09/20/17 at 21:00 Buspirone HCl (Buspar) 10 mg BID PO Last administered on 09/30/17at 20:00; Start 09/20/17 at 09:00 Paroxetine HCl (Paxil) 10 mg DAILY PO Last administered on 09/23/17at 08:11; Start 09/20/17 at 09:00; Stop 09/23/17 at 19:20; Status DC Calcium Carbonate/ Glycine (Oscal) 500 mg DAILY PO Last administered on at 08:26; Start 09/20/17 at 09:00 Metoprolol Succinate (Toprol Xl) 12.5 mg DAILY PO Last administered on at 08:25; Start 09/20/17 at 09:00 Acetaminophen (Tylenol) 1,000 mg PRN Q6HRS PRN PO PAIN / TEMP; Start 09/20/17 at 02:15 Acetaminophen (Tylenol) 500 mg PRN Q6HRS PRN PO PAIN / TEMP Last administered on 09/25/17at 03:59; Start 09/20/17 at 02:15 Magnesium Hydroxide (Milk Of Magnesia) 2,400 mg PRN DAILY PRN PO CONSTIPATION; Start 09/20/17 at 02:15 Sennosides (Senna) 8.6 mg PRN DAILY PRN PO CONSTIPATION; Start 09/20/17 at 02: 15 Multi-Ingredient Ointment (Analgesic [place]) 1 joaquim PRN QID PRN TP MUSCLE PAIN; Start 09/20/17 at 02:00 Al Hydroxide/Mg Hydroxide (Mylanta Plus Xs) 15 ml PRN AFTMEALHC PRN PO DYSPEPSIA; Start 09/20/17 at 02:00 Mirtazapine (Remeron) 7.5 mg QHS PO Last administered on 09/22/17at 20:30; Start 09/20/17 at 21:00; Stop 09/23/17 at 19:20; Status DC Alprazolam (Xanax) 0.25 mg PRN Q2HR PRN PO ANXIETY / AGITATION Last administered on 09/28/17at 10:46; Start 09/20/17 at 18:45 Vitamin D (Vitamin D3) 50,000 unit WEEKLY PO Last administered on 09/27/17at 08: 00; Start 09/20/17 at 19:30 Mirtazapine (Remeron) 15 mg QHS PO Last administered on 09/30/17at 20:00; Start 09/23/17 at 21:00 Paroxetine HCl (Paxil) 15 mg DAILY PO Last administered on 09/26/17at 08:21; Start 09/24/17 at 09:00; Stop 09/26/17 at 18:43; Status DC Trazodone HCl (Desyrel) 50 mg QHS PO ; Start 09/26/17 at 21:00; Stop 09/26/17 at 21:00; Status DC Trazodone HCl (Desyrel) 50 mg QHS PO Last administered on 09/30/17at 20:00; Start 09/25/17 at 23:00 Duloxetine HCl (Cymbalta) 30 mg DAILY PO Last administered on 09/29/17at 09:53; Start 09/27/17 at 09:00; Stop 09/29/17 at 18:00; Status DC Duloxetine HCl (Cymbalta) 60 mg DAILY PO Last administered on 09/30/17at 08:25; Start 09/30/17 at 09:00 Active Scripts Active Reported Milk Of Magnesia (Magnesium Hydroxide) 2,400 Mg/10 Ml Oral.susp 2,400 Mg PO PRN DAILY PRN Clonazepam 0.5 Mg Tablet 0.25 Mg PO DAILY Clonazepam 0.5 Mg Tablet 0.5 Mg PO HS Zolpidem Tartrate 5 Mg Tablet 5 Mg PO HS Oyster Shell Calcium (Calcium Carbonate) 500 Mg Tablet 500 Mg PO DAILY Senna (Sennosides) 8.6 Mg Tablet 8.6 Mg PO PRN DAILY PRN Acetaminophen 500 Mg Tablet 1,000 Mg PO PRN Q6HRS PRN Acetaminophen 500 Mg Tablet 500 Mg PO PRN Q4HRS PRN Metoprolol Succinate ( Xl ) (Metoprolol Succinate) 25 Mg Tab.er.24h 12.5 Mg PO DAILY Nortriptyline Hcl 25 Mg Capsule 50 Mg PO HS Buspirone Hcl 10 Mg Tablet 10 Mg PO BID Paroxetine Hcl 10 Mg Tablet 10 Mg PO DAILY I have reviewed the current psychotropics carefully including drug interactions. Risk benefit ratio favors no change other than as noted in my dictated progress note. 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
[2017-10-01 05:48] VITALS: BP 149/93
[2017-10-01 07:54] LABS: BASO # 0.1 x10^3/uL (0.0-0.2); BASO % 1 % (0-3); EOS # 0.4 x10^3/uL (0.0-0.7); EOS % 5 % (0-3); HEMATOCRIT 36.6 % (36.0-47.0); HEMOGLOBIN 12.2 g/dL (12.0-15.5); LYMPH # 2.8 x10^3/uL (1.0-4.8); LYMPH % 34 % (24-48); MEAN CORPUSCULAR HEMOGLOBIN 31 pg (25-35); MEAN CORPUSCULAR HGB CONC 33 g/dL (31-37); MEAN CORPUSCULAR VOLUME 94 fL (79-100); MONO % 12 % (0-9); NEUT # 3.9 x10^3uL (1.8-7.7); NEUT % 48 % (31-73); PLATELET COUNT 373 x10^3/uL (140-400); RED BLOOD COUNT 3.91 x10^6/uL (3.50-5.40); RED CELL DISTRIBUTION WIDTH 13.4 % (11.5-14.5); WHITE BLOOD COUNT 8.1 x10^3/uL (4.0-11.0)
[2017-10-01 08:13] LABS: ALBUMIN 3.1 g/dL (3.4-5.0); ALBUMIN/GLOBULIN RATIO 0.8 (1.0-1.7); CALCIUM 8.9 mg/dL (8.5-10.1); CREATININE 0.8 mg/dL (0.6-1.0); GFR 68.2; TOTAL BILIRUBIN 0.3 mg/dL (0.2-1.0)
[2017-10-01] MEDS: busPIRone 10 MG TABLET. PO SCH ×2 (08:30→19:47)
[2017-10-01] MEDS: DULoxetine HCL 60 MG CAPSULE.DR PO SCH (08:30)
[2017-10-01] MEDS: clonazePAM 0.5 MG TABLET PO SCH ×2 (08:31→19:49)
[2017-10-01] MEDS: CALCIUM CARBONATE 500 MG TABLET PO SCH (08:31)
[2017-10-01] MEDS: METOPROLOL SUCC 24HR ER 25 MG TAB.ER.24H. PO SCH (08:32)
[2017-10-01] MEDS: ALPRAZolam 0.25 MG TABLET PO PRN (14:46)
[2017-10-01 16:00] VITALS: BP 140/68
[2017-10-01] MEDS: traZODone 50 MG TABLET. PO SCH (19:47)
[2017-10-01] MEDS: MIRTAZAPINE 15 MG TABLET PO SCH (19:47)
[2017-10-01] MEDS: ZOLPIDEM 5 MG TABLET. PO SCH (19:49)
--- NOTE | 2017-10-01 22:45 | PDOC ---
Exam Note: Reynaldo Note: Please also refer to the separate dictated note~for this date of service dictated separately.~Patient seen individually. Discussed the patient with Nursing staff reviewed the chart.~Reviewed interim history and current functioning. Reviewed vital signs,~Labs/ Radiology~and current medications noted below. Continue current treatment with the changes noted in the dictated addendum note Assessment: Vital Signs: Vital Signs Date Time Temp Pulse Resp B/P (MAP) Pulse Ox O2 Delivery O2 Flow Rate FiO2 10/01/17 16:00 98.2 75 16 140/68 (92) 97 09/26/17 16:14 Room Air I&O Intake and Output 10/01/17 07:00 Intake Total 1536 ml Balance 1536 ml Intake Oral 1536 ml Labs: Laboratory Tests Test 10/01/17 07:42 White Blood Count 8.1 x10^3/uL (4.0-11.0) Red Blood Count 3.91 x10^6/uL (3.50-5.40) Hemoglobin 12.2 g/dL (12.0-15.5) Hematocrit 36.6 % (36.0-47.0) Mean Corpuscular Volume 94 fL (79-100) Mean Corpuscular Hemoglobin 31 pg (25-35) Mean Corpuscular Hemoglobin Concent 33 g/dL (31-37) Red Cell Distribution Width 13.4 % (11.5-14.5) Platelet Count 373 x10^3/uL (140-400) Neutrophils (%) (Auto) 48 % (31-73) Lymphocytes (%) (Auto) 34 % (24-48) Monocytes (%) (Auto) 12 % (0-9) H Eosinophils (%) (Auto) 5 % (0-3) H Basophils (%) (Auto) 1 % (0-3) Neutrophils # (Auto) 3.9 x10^3uL (1.8-7.7) Lymphocytes # (Auto) 2.8 x10^3/uL (1.0-4.8) Monocytes # (Auto) 1.0 x10^3/uL (0.0-1.1) Eosinophils # (Auto) 0.4 x10^3/uL (0.0-0.7) Basophils # (Auto) 0.1 x10^3/uL (0.0-0.2) Sodium Level 140 mmol/L (136-145) Potassium Level 4.0 mmol/L (3.5-5.1) Chloride Level 102 mmol/L (98-107) Carbon Dioxide Level 32 mmol/L (21-32) Anion Gap 6 (6-14) Blood Urea Nitrogen 13 mg/dL (7-20) Creatinine 0.8 mg/dL (0.6-1.0) Estimated GFR (Cockcroft-Gault) 68.2 BUN/Creatinine Ratio 16 (6-20) Glucose Level 86 mg/dL (70-99) Calcium Level 8.9 mg/dL (8.5-10.1) Total Bilirubin 0.3 mg/dL (0.2-1.0) Aspartate Amino Transferase (AST) 16 U/L (15-37) Alanine Aminotransferase (ALT) 20 U/L (14-59) Alkaline Phosphatase 76 U/L (46-116) Total Protein 7.0 g/dL (6.4-8.2) Albumin 3.1 g/dL (3.4-5.0) L Albumin/Globulin Ratio 0.8 (1.0-1.7) L Current Medications: Meds: Current Medications Clonidine HCl (Catapres Tts-2) 1 patch 1X ONCE TD Last administered on at 01:00; Start 09/19/17 at 23:30; Stop 09/20/17 at 02:02; Status DC Clonidine HCl (Catapres) 0.1 mg 1X ONCE PO Last administered on 09/19/17at 01: 00; Start 09/19/17 at 23:30; Stop 09/20/17 at 02:02; Status DC Clonazepam (KlonoPIN) 0.25 mg DAILY PO Last administered on 10/01/17at 08:31; Start 09/20/17 at 09:00 Clonazepam (KlonoPIN) 0.5 mg HS PO Last administered on 10/01/17at 19:49; Start 09/20/17 at 21:00 Nortriptyline HCl (Pamelor) 50 mg HS PO ; Start 09/20/17 at 21:00; Stop at 21:00; Status DC Zolpidem Tartrate (Ambien) 5 mg HS PO Last administered on 10/01/17at 19:49; Start 09/20/17 at 21:00 Buspirone HCl (Buspar) 10 mg BID PO Last administered on 10/01/17at 19:47; Start 09/20/17 at 09:00 Paroxetine HCl (Paxil) 10 mg DAILY PO Last administered on 09/23/17at 08:11; Start 09/20/17 at 09:00; Stop 09/23/17 at 19:20; Status DC Calcium Carbonate/ Glycine (Oscal) 500 mg DAILY PO Last administered on at 08:31; Start 09/20/17 at 09:00 Metoprolol Succinate (Toprol Xl) 12.5 mg DAILY PO Last administered on at 08:32; Start 09/20/17 at 09:00 Acetaminophen (Tylenol) 1,000 mg PRN Q6HRS PRN PO PAIN / TEMP; Start 09/20/17 at 02:15 Acetaminophen (Tylenol) 500 mg PRN Q6HRS PRN PO PAIN / TEMP Last administered on 09/25/17at 03:59; Start 09/20/17 at 02:15 Magnesium Hydroxide (Milk Of Magnesia) 2,400 mg PRN DAILY PRN PO CONSTIPATION; Start 09/20/17 at 02:15 Sennosides (Senna) 8.6 mg PRN DAILY PRN PO CONSTIPATION; Start 09/20/17 at 02: 15 Multi-Ingredient Ointment (Analgesic [place]) 1 joaquim PRN QID PRN TP MUSCLE PAIN; Start 09/20/17 at 02:00 Al Hydroxide/Mg Hydroxide (Mylanta Plus Xs) 15 ml PRN AFTMEALHC PRN PO DYSPEPSIA; Start 09/20/17 at 02:00 Mirtazapine (Remeron) 7.5 mg QHS PO Last administered on 09/22/17at 20:30; Start 09/20/17 at 21:00; Stop 09/23/17 at 19:20; Status DC Alprazolam (Xanax) 0.25 mg PRN Q2HR PRN PO ANXIETY / AGITATION Last administered on 10/01/17at 14:46; Start 09/20/17 at 18:45 Vitamin D (Vitamin D3) 50,000 unit WEEKLY PO Last administered on 09/27/17at 08: 00; Start 09/20/17 at 19:30 Mirtazapine (Remeron) 15 mg QHS PO Last administered on 10/01/17at 19:47; Start 09/23/17 at 21:00 Paroxetine HCl (Paxil) 15 mg DAILY PO Last administered on 09/26/17at 08:21; Start 09/24/17 at 09:00; Stop 09/26/17 at 18:43; Status DC Trazodone HCl (Desyrel) 50 mg QHS PO ; Start 09/26/17 at 21:00; Stop 09/26/17 at 21:00; Status DC Trazodone HCl (Desyrel) 50 mg QHS PO Last administered on 10/01/17at 19:47; Start 09/25/17 at 23:00 Duloxetine HCl (Cymbalta) 30 mg DAILY PO Last administered on 09/29/17at 09:53; Start 09/27/17 at 09:00; Stop 09/29/17 at 18:00; Status DC Duloxetine HCl (Cymbalta) 60 mg DAILY PO Last administered on 10/01/17at 08:30; Start 09/30/17 at 09:00 Active Scripts Active Reported Milk Of Magnesia (Magnesium Hydroxide) 2,400 Mg/10 Ml Oral.susp 2,400 Mg PO PRN DAILY PRN Clonazepam 0.5 Mg Tablet 0.25 Mg PO DAILY Clonazepam 0.5 Mg Tablet 0.5 Mg PO HS Zolpidem Tartrate 5 Mg Tablet 5 Mg PO HS Oyster Shell Calcium (Calcium Carbonate) 500 Mg Tablet 500 Mg PO DAILY Senna (Sennosides) 8.6 Mg Tablet 8.6 Mg PO PRN DAILY PRN Acetaminophen 500 Mg Tablet 1,000 Mg PO PRN Q6HRS PRN Acetaminophen 500 Mg Tablet 500 Mg PO PRN Q4HRS PRN Metoprolol Succinate ( Xl ) (Metoprolol Succinate) 25 Mg Tab.er.24h 12.5 Mg PO DAILY Nortriptyline Hcl 25 Mg Capsule 50 Mg PO HS Buspirone Hcl 10 Mg Tablet 10 Mg PO BID Paroxetine Hcl 10 Mg Tablet 10 Mg PO DAILY I have reviewed the current psychotropics carefully including drug interactions. Risk benefit ratio favors no change other than as noted in my dictated progress note. Diagnosis: Problems: (1) Anxiety disorder (2) Major depressive disorder, recurrent episode (3) Panic disorder with agoraphobia and severe panic attacks PEDRO BLAKELY MD Oct 01, 2017 22:45
[2017-10-02 06:12] VITALS: BP 133/72
[2017-10-02] MEDS: busPIRone 10 MG TABLET. PO SCH ×2 (08:38→20:18)
[2017-10-02] MEDS: DULoxetine HCL 60 MG CAPSULE.DR PO SCH (08:38)
[2017-10-02] MEDS: clonazePAM 0.5 MG TABLET PO SCH ×2 (08:39→20:18)
[2017-10-02] MEDS: CALCIUM CARBONATE 500 MG TABLET PO SCH (08:40)
[2017-10-02] MEDS: METOPROLOL SUCC 24HR ER 25 MG TAB.ER.24H. PO SCH (08:41)
[2017-10-02 16:11] VITALS: BP 175/72
--- NOTE | 2017-10-02 17:50 | PN ---
DATE: 09/30/2017 This is a late entry for 09/30/2017 and covers the elements not covered in my initial note. SUBJECTIVE: I met with the patient in the evening. The patient slept 6-1/2 hours. She remains somewhat anxious at times, but less so than before. REVIEW OF SYSTEM: No CV, , pulmonary, eye system symptoms on review. MENTAL STATUS EXAM: Oriented reasonably. Speech has some latency, coherent. Abstraction fair, computation impaired, language function intact. Still somewhat anxious, but improved. No suicidal or homicidal ideation. Smiling, pleasant as I met with her. LABORATORY DATA: Reviewed. IMPRESSION: Unchanged from initial note, major depressive disorder; anxiety disorder, unspecified. PLAN: Continue current psychotropics. Paxil is being changed to Cymbalta, we will increase to 60 mg a day. MAN Lulú BLAKELY MD DR: FERNANDA/kaitlin JOB#: [id number] / [id number]
[2017-10-02] MEDS: traZODone 50 MG TABLET. PO SCH (20:18)
[2017-10-02] MEDS: MIRTAZAPINE 15 MG TABLET PO SCH (20:18)
[2017-10-02] MEDS: ZOLPIDEM 5 MG TABLET. PO SCH (20:18)
--- NOTE | 2017-10-02 20:53 | PDOC ---
Exam Note: Reynaldo Note: Please also refer to the separate dictated note~for this date of service dictated separately.~Patient seen individually. Discussed the patient with Nursing staff reviewed the chart.~Reviewed interim history and current functioning. Reviewed vital signs,~Labs/ Radiology~and current medications noted below. Continue current treatment with the changes noted in the dictated addendum note Assessment: Vital Signs: Vital Signs Date Time Temp Pulse Resp B/P (MAP) Pulse Ox O2 Delivery O2 Flow Rate FiO2 10/02/17 16:11 97.6 66 20 175/72 (106) 97 09/26/17 16:14 Room Air I&O Intake and Output 10/02/17 07:00 Intake Total 1680 ml Balance 1680 ml Intake Oral 1680 ml Current Medications: Meds: Current Medications Clonidine HCl (Catapres Tts-2) 1 patch 1X ONCE TD Last administered on at 01:00; Start 09/19/17 at 23:30; Stop 09/20/17 at 02:02; Status DC Clonidine HCl (Catapres) 0.1 mg 1X ONCE PO Last administered on 09/19/17at 01: 00; Start 09/19/17 at 23:30; Stop 09/20/17 at 02:02; Status DC Clonazepam (KlonoPIN) 0.25 mg DAILY PO Last administered on 10/02/17at 08:39; Start 09/20/17 at 09:00 Clonazepam (KlonoPIN) 0.5 mg HS PO Last administered on 10/02/17at 20:18; Start 09/20/17 at 21:00 Nortriptyline HCl (Pamelor) 50 mg HS PO ; Start 09/20/17 at 21:00; Stop at 21:00; Status DC Zolpidem Tartrate (Ambien) 5 mg HS PO Last administered on 10/02/17at 20:18; Start 09/20/17 at 21:00 Buspirone HCl (Buspar) 10 mg BID PO Last administered on 10/02/17at 20:18; Start 09/20/17 at 09:00 Paroxetine HCl (Paxil) 10 mg DAILY PO Last administered on 09/23/17at 08:11; Start 09/20/17 at 09:00; Stop 09/23/17 at 19:20; Status DC Calcium Carbonate/ Glycine (Oscal) 500 mg DAILY PO Last administered on at 08:40; Start 09/20/17 at 09:00 Metoprolol Succinate (Toprol Xl) 12.5 mg DAILY PO Last administered on at 08:41; Start 09/20/17 at 09:00 Acetaminophen (Tylenol) 1,000 mg PRN Q6HRS PRN PO PAIN / TEMP; Start 09/20/17 at 02:15 Acetaminophen (Tylenol) 500 mg PRN Q6HRS PRN PO PAIN / TEMP Last administered on 09/25/17at 03:59; Start 09/20/17 at 02:15 Magnesium Hydroxide (Milk Of Magnesia) 2,400 mg PRN DAILY PRN PO CONSTIPATION; Start 09/20/17 at 02:15 Sennosides (Senna) 8.6 mg PRN DAILY PRN PO CONSTIPATION; Start 09/20/17 at 02: 15 Multi-Ingredient Ointment (Analgesic [place]) 1 joaquim PRN QID PRN TP MUSCLE PAIN; Start 09/20/17 at 02:00 Al Hydroxide/Mg Hydroxide (Mylanta Plus Xs) 15 ml PRN AFTMEALHC PRN PO DYSPEPSIA; Start 09/20/17 at 02:00 Mirtazapine (Remeron) 7.5 mg QHS PO Last administered on 09/22/17at 20:30; Start 09/20/17 at 21:00; Stop 09/23/17 at 19:20; Status DC Alprazolam (Xanax) 0.25 mg PRN Q2HR PRN PO ANXIETY / AGITATION Last administered on 10/01/17at 14:46; Start 09/20/17 at 18:45 Vitamin D (Vitamin D3) 50,000 unit WEEKLY PO Last administered on 09/27/17at 08: 00; Start 09/20/17 at 19:30 Mirtazapine (Remeron) 15 mg QHS PO Last administered on 10/02/17at 20:18; Start 09/23/17 at 21:00 Paroxetine HCl (Paxil) 15 mg DAILY PO Last administered on 09/26/17at 08:21; Start 09/24/17 at 09:00; Stop 09/26/17 at 18:43; Status DC Trazodone HCl (Desyrel) 50 mg QHS PO ; Start 09/26/17 at 21:00; Stop 09/26/17 at 21:00; Status DC Trazodone HCl (Desyrel) 50 mg QHS PO Last administered on 10/02/17at 20:18; Start 09/25/17 at 23:00 Duloxetine HCl (Cymbalta) 30 mg DAILY PO Last administered on 09/29/17at 09:53; Start 09/27/17 at 09:00; Stop 09/29/17 at 18:00; Status DC Duloxetine HCl (Cymbalta) 60 mg DAILY PO Last administered on 10/02/17at 08:38; Start 09/30/17 at 09:00 Active Scripts Active Reported Milk Of Magnesia (Magnesium Hydroxide) 2,400 Mg/10 Ml Oral.susp 2,400 Mg PO PRN DAILY PRN Clonazepam 0.5 Mg Tablet 0.25 Mg PO DAILY Clonazepam 0.5 Mg Tablet 0.5 Mg PO HS Zolpidem Tartrate 5 Mg Tablet 5 Mg PO HS Oyster Shell Calcium (Calcium Carbonate) 500 Mg Tablet 500 Mg PO DAILY Senna (Sennosides) 8.6 Mg Tablet 8.6 Mg PO PRN DAILY PRN Acetaminophen 500 Mg Tablet 1,000 Mg PO PRN Q6HRS PRN Acetaminophen 500 Mg Tablet 500 Mg PO PRN Q4HRS PRN Metoprolol Succinate ( Xl ) (Metoprolol Succinate) 25 Mg Tab.er.24h 12.5 Mg PO DAILY Nortriptyline Hcl 25 Mg Capsule 50 Mg PO HS Buspirone Hcl 10 Mg Tablet 10 Mg PO BID Paroxetine Hcl 10 Mg Tablet 10 Mg PO DAILY I have reviewed the current psychotropics carefully including drug interactions. Risk benefit ratio favors no change other than as noted in my dictated progress note. 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
--- NOTE | 2017-10-02 22:43 | PN ---
DATE: 10/01/2017 This late entry 10/01/2017 covers elements not covered in my initial note. SUBJECTIVE: The patient slept 6-1/2 hours, did well previous evening, anxious during the day on 10/01/2017, received Xanax at 1445 hours. There has been a lot of noise on the unit, which makes it more difficult for her. REVIEW OF SYSTEMS: No CV, , pulmonary, eye, ENT system symptoms on review. MENTAL STATUS EXAM: Reasonably oriented. Speech coherent, has some latency. Abstraction fair, computation impaired, language function intact. Mood and affect somewhat anxious. LABORATORY DATA: Reviewed. IMPRESSION: Unchanged from initial note. PLAN: Continue psychotropics from initial note including gradually increasing the Cymbalta. MAN Lulú BLAKELY MD DR: FERNANDA/kaitlin JOB#: [id number] / [id number]
--- NOTE | 2017-10-02 23:20 | PN ---
DATE: 10/02/2017 This note covers elements not covered in my initial note. SUBJECTIVE: I met with the patient in the evening. Overall, the patient has been calm, cooperative, compliant, not needed Xanax today. 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 REVIEW OF SYSTEMS: No CV, , pulmonary, eye, ENT system symptoms on review. MENTAL STATUS EXAM: Oriented to herself and situation. Speech coherent, abstraction fair, computation impaired, language function intact. Mood and affect is improved, less anxious. LABORATORY DATA: Reviewed. IMPRESSION: Unchanged from initial note. PLAN: Continue psychotropics, some of the fuzzy headedness could be due to the change from Paxil to Cymbalta. We will monitor another day or 2. MAN Lulú BLAKELY MD DR: FERNANDA/kaitlin JOB#: [id number] / [id number]
[2017-10-03 05:55] VITALS: BP 122/61
[2017-10-03] MEDS: clonazePAM 0.5 MG TABLET PO SCH ×2 (08:41→19:51)
[2017-10-03] MEDS: DULoxetine HCL 60 MG CAPSULE.DR PO SCH (08:41)
[2017-10-03] MEDS: CALCIUM CARBONATE 500 MG TABLET PO SCH (08:41)
[2017-10-03] MEDS: busPIRone 10 MG TABLET. PO SCH ×2 (08:41→19:49)
[2017-10-03] MEDS: METOPROLOL SUCC 24HR ER 25 MG TAB.ER.24H. PO SCH (08:43)
[2017-10-03 16:24] VITALS: BP 140/76
[2017-10-03] MEDS: MIRTAZAPINE 15 MG TABLET PO SCH (19:49)
[2017-10-03] MEDS: traZODone 50 MG TABLET. PO SCH (19:49)
[2017-10-03] MEDS: ZOLPIDEM 5 MG TABLET. PO SCH (19:51)
[2017-10-03] MEDS: MAGNESIUM HYDROXIDE 2,400 MG/30 ML ORAL.SUSP. PO PRN (20:08)
--- NOTE | 2017-10-03 20:52 | PDOC ---
Exam Note: Reynaldo Note: Please also refer to the separate dictated note~for this date of service dictated separately.~Patient seen individually. Discussed the patient with Nursing staff reviewed the chart.~Reviewed interim history and current functioning. Reviewed vital signs,~Labs/ Radiology~and current medications noted below. Continue current treatment with the changes noted in the dictated addendum note Assessment: Vital Signs: Vital Signs Date Time Temp Pulse Resp B/P (MAP) Pulse Ox O2 Delivery O2 Flow Rate FiO2 10/03/17 16:24 98.2 76 18 140/76 (97) 95 Room Air I&O Intake and Output 10/03/17 07:01 Intake Total 1080 ml Balance 1080 ml Intake Oral 1080 ml Current Medications: Meds: Current Medications Clonidine HCl (Catapres Tts-2) 1 patch 1X ONCE TD Last administered on at 01:00; Start 09/19/17 at 23:30; Stop 09/20/17 at 02:02; Status DC Clonidine HCl (Catapres) 0.1 mg 1X ONCE PO Last administered on 09/19/17at 01: 00; Start 09/19/17 at 23:30; Stop 09/20/17 at 02:02; Status DC Clonazepam (KlonoPIN) 0.25 mg DAILY PO Last administered on 10/03/17at 08:41; Start 09/20/17 at 09:00 Clonazepam (KlonoPIN) 0.5 mg HS PO Last administered on 10/03/17at 19:51; Start 09/20/17 at 21:00 Nortriptyline HCl (Pamelor) 50 mg HS PO ; Start 09/20/17 at 21:00; Stop at 21:00; Status DC Zolpidem Tartrate (Ambien) 5 mg HS PO Last administered on 10/03/17 19:51; Start 09/20/17 at 21:00 Buspirone HCl (Buspar) 10 mg BID PO Last administered on 10/03/17at 19:49; Start 09/20/17 at 09:00 Paroxetine HCl (Paxil) 10 mg DAILY PO Last administered on 09/23/17at 08:11; Start 09/20/17 at 09:00; Stop 09/23/17 at 19:20; Status DC Calcium Carbonate/ Glycine (Oscal) 500 mg DAILY PO Last administered on 08:41; Start 09/20/17 at 09:00 Metoprolol Succinate (Toprol Xl) 12.5 mg DAILY PO Last administered on at 08:43; Start 09/20/17 at 09:00 Acetaminophen (Tylenol) 1,000 mg PRN Q6HRS PRN PO PAIN / TEMP; Start 09/20/17 at 02:15 Acetaminophen (Tylenol) 500 mg PRN Q6HRS PRN PO PAIN / TEMP Last administered on 09/25/17at 03:59; Start 09/20/17 at 02:15 Magnesium Hydroxide (Milk Of Magnesia) 2,400 mg PRN DAILY PRN PO CONSTIPATION Last administered on 10/03/17 20:08; Start 09/20/17 at 02:15 Sennosides (Senna) 8.6 mg PRN DAILY PRN PO CONSTIPATION; Start 09/20/17 at 02: 15 Multi-Ingredient Ointment (Analgesic [place]) 1 joaquim PRN QID PRN TP MUSCLE PAIN; Start 09/20/17 at 02:00 Al Hydroxide/Mg Hydroxide (Mylanta Plus Xs) 15 ml PRN AFTMEALHC PRN PO DYSPEPSIA; Start 09/20/17 at 02:00 Mirtazapine (Remeron) 7.5 mg QHS PO Last administered on 09/22/17at 20:30; Start 09/20/17 at 21:00; Stop 09/23/17 at 19:20; Status DC Alprazolam (Xanax) 0.25 mg PRN Q2HR PRN PO ANXIETY / AGITATION Last administered on 10/01/17at 14:46; Start 09/20/17 at 18:45 Vitamin D (Vitamin D3) 50,000 unit WEEKLY PO Last administered on 09/27/17at 08: 00; Start 09/20/17 at 19:30 Mirtazapine (Remeron) 15 mg QHS PO Last administered on 10/03/17at 19:49; Start 09/23/17 at 21:00 Paroxetine HCl (Paxil) 15 mg DAILY PO Last administered on 09/26/17at 08:21; Start 09/24/17 at 09:00; Stop 09/26/17 at 18:43; Status DC Trazodone HCl (Desyrel) 50 mg QHS PO ; Start 09/26/17 at 21:00; Stop 09/26/17 at 21:00; Status DC Trazodone HCl (Desyrel) 50 mg QHS PO Last administered on 10/03/17at 19:49; Start 09/25/17 at 23:00 Duloxetine HCl (Cymbalta) 30 mg DAILY PO Last administered on 09/29/17at 09:53; Start 09/27/17 at 09:00; Stop 09/29/17 at 18:00; Status DC Duloxetine HCl (Cymbalta) 60 mg DAILY PO Last administered on 10/03/17at 08:41; Start 09/30/17 at 09:00 Active Scripts Active Reported Milk Of Magnesia (Magnesium Hydroxide) 2,400 Mg/10 Ml Oral.susp 2,400 Mg PO PRN DAILY PRN Clonazepam 0.5 Mg Tablet 0.25 Mg PO DAILY Clonazepam 0.5 Mg Tablet 0.5 Mg PO HS Zolpidem Tartrate 5 Mg Tablet 5 Mg PO HS Oyster Shell Calcium (Calcium Carbonate) 500 Mg Tablet 500 Mg PO DAILY Senna (Sennosides) 8.6 Mg Tablet 8.6 Mg PO PRN DAILY PRN Acetaminophen 500 Mg Tablet 1,000 Mg PO PRN Q6HRS PRN Acetaminophen 500 Mg Tablet 500 Mg PO PRN Q4HRS PRN Metoprolol Succinate ( Xl ) (Metoprolol Succinate) 25 Mg Tab.er.24h 12.5 Mg PO DAILY Nortriptyline Hcl 25 Mg Capsule 50 Mg PO HS Buspirone Hcl 10 Mg Tablet 10 Mg PO BID Paroxetine Hcl 10 Mg Tablet 10 Mg PO DAILY I have reviewed the current psychotropics carefully including drug interactions. Risk benefit ratio favors no change other than as noted in my dictated progress note. Diagnosis: Problems: (1) Anxiety disorder (2) Major depressive disorder, recurrent episode (3) Panic disorder with agoraphobia and severe panic attacks PEDRO BLAKELY MD Oct 03, 2017 20:52
[2017-10-04 07:25] VITALS: BP 132/78
[2017-10-04] MEDS: CALCIUM CARBONATE 500 MG TABLET PO SCH (09:54)
[2017-10-04] MEDS: DULoxetine HCL 60 MG CAPSULE.DR PO SCH (09:54)
[2017-10-04] MEDS: METOPROLOL SUCC 24HR ER 25 MG TAB.ER.24H. PO SCH (09:54)
[2017-10-04] MEDS: busPIRone 10 MG TABLET. PO SCH ×2 (09:55→19:28)
[2017-10-04] MEDS: CHOLECALCIFEROL (VITAMIN D3) 50,000 UNIT CAPSULE PO SCH (09:56)
[2017-10-04] MEDS: clonazePAM 0.5 MG TABLET PO SCH ×2 (09:56→19:28)
[2017-10-04 16:37] VITALS: BP 99/63
[2017-10-04] MEDS: ZOLPIDEM 5 MG TABLET. PO SCH (19:26)
[2017-10-04] MEDS: MIRTAZAPINE 15 MG TABLET PO SCH (19:26)
[2017-10-04] MEDS: traZODone 50 MG TABLET. PO SCH (19:26)
--- NOTE | 2017-10-04 19:59 | PN ---
DATE: 10/03/2017 This is a late entry 10/03/2017, covers elements not covered in my initial note. SUBJECTIVE: I met with the patient in the evening. The patient did well the previous evening and during the day. She has complained of some cloudiness in her head, but feels this is better by the evening. She has got a stack of greeting cards from the other sisters and was appreciative of this. REVIEW OF SYSTEMS: No CV, , pulmonary, eye, ENT system symptoms on review. MENTAL STATUS EXAM: Reasonably oriented. Speech is coherent, has some latency. Abstraction fair, computation impaired, language function intact, attention span short. Mood and affect improved, less anxious. LABORATORY DATA: Reviewed. IMPRESSION: Unchanged from my initial note. PLAN: Continue current psychotropics and we will attempt to reduce the daytime Klonopin in a day or so. Maintain BuSpar, Remeron, Ambien, trazodone, Cymbalta for now, this is according to my initial note. PEDRO BLAKELY MD DR: FERNANDA/kaitlin JOB#: [id number] / [id number]
[2017-10-05] MEDS: ACETAMINOPHEN 500 MG TABLET PO PRN (02:32)
[2017-10-05 05:33] VITALS: BP 142/73
[2017-10-05 06:45] LABS: ALBUMIN 2.7 g/dL (3.4-5.0); ALBUMIN/GLOBULIN RATIO 0.8 (1.0-1.7); CALCIUM 8.5 mg/dL (8.5-10.1); CREATININE 0.8 mg/dL (0.6-1.0); GFR 68.2; POTASSIUM 3.8 mmol/L (3.5-5.1); TOTAL BILIRUBIN 0.3 mg/dL (0.2-1.0); TOTAL PROTEIN 6.2 g/dL (6.4-8.2)
[2017-10-05 06:55] LABS: BASO % 1 % (0-3); EOS # 0.4 x10^3/uL (0.0-0.7); EOS % 5 % (0-3); HEMATOCRIT 33.5 % (36.0-47.0); HEMOGLOBIN 11.2 g/dL (12.0-15.5); LYMPH # 2.9 x10^3/uL (1.0-4.8); LYMPH % 36 % (24-48); MEAN CORPUSCULAR HEMOGLOBIN 31 pg (25-35); MEAN CORPUSCULAR HGB CONC 34 g/dL (31-37); MEAN CORPUSCULAR VOLUME 93 fL (79-100); MONO # 1.3 x10^3/uL (0.0-1.1); MONO % 16 % (0-9); NEUT # 3.4 x10^3uL (1.8-7.7); NEUT % 43 % (31-73); PLATELET COUNT 317 x10^3/uL (140-400); RED BLOOD COUNT 3.59 x10^6/uL (3.50-5.40); RED CELL DISTRIBUTION WIDTH 13.2 % (11.5-14.5); WHITE BLOOD COUNT 8.1 x10^3/uL (4.0-11.0)
[2017-10-05] MEDS: DULoxetine HCL 60 MG CAPSULE.DR PO SCH (08:01)
[2017-10-05] MEDS: busPIRone 10 MG TABLET. PO SCH ×2 (08:01→20:23)
[2017-10-05] MEDS: CALCIUM CARBONATE 500 MG TABLET PO SCH (08:01)
[2017-10-05] MEDS: METOPROLOL SUCC 24HR ER 25 MG TAB.ER.24H. PO SCH (08:02)
[2017-10-05 15:55] VITALS: BP 138/68
--- NOTE | 2017-10-05 20:03 | PDOC ---
Exam Note: Reynaldo Note: Late entry for date of service 04 October 2017. Please also refer to the separate dictated note~for this date of service dictated separately.~Patient seen individually. Discussed the patient with Nursing staff reviewed the chart.~ Reviewed interim history and current functioning. Reviewed vital signs,~Labs/ Radiology~and current medications noted below. Continue current treatment with the changes noted in the dictated addendum note Assessment: Vital Signs: VS - Last 72 Hours, by Label Date Time Temp Pulse Resp B/P (MAP) Pulse Ox O2 Delivery O2 Flow Rate FiO2 10/05/17 15:55 98.1 72 20 138/68 (91) 97 Room Air 10/05/17 08:02 65 142/73 10/05/17 05:33 97.9 65 16 142/73 (96) 97 Room Air 10/04/17 16:37 97.5 70 18 99/63 (75) 95 10/04/17 09:54 75 132/78 10/04/17 07:25 98.5 75 18 132/78 (96) 97 Room Air 10/03/17 16:24 98.2 76 18 140/76 (97) 95 Room Air 10/03/17 08:43 72 122/61 10/03/17 05:55 97.8 72 18 122/61 (81) 95 Room Air Vital Signs Date Time Temp Pulse Resp B/P (MAP) Pulse Ox O2 Delivery O2 Flow Rate FiO2 10/05/17 15:55 98.1 72 20 138/68 (91) 97 Room Air I&O Intake and Output 10/05/17 07:00 Intake Total 1480 ml Balance 1480 ml Intake Oral 1480 ml # Bowel Movements 1 Labs: Laboratory Tests Test 10/05/17 05:59 White Blood Count 8.1 x10^3/uL (4.0-11.0) Red Blood Count 3.59 x10^6/uL (3.50-5.40) Hemoglobin 11.2 g/dL (12.0-15.5) L Hematocrit 33.5 % (36.0-47.0) L Mean Corpuscular Volume 93 fL (79-100) Mean Corpuscular Hemoglobin 31 pg (25-35) Mean Corpuscular Hemoglobin Concent 34 g/dL (31-37) Red Cell Distribution Width 13.2 % (11.5-14.5) Platelet Count 317 x10^3/uL (140-400) Neutrophils (%) (Auto) 43 % (31-73) Lymphocytes (%) (Auto) 36 % (24-48) Monocytes (%) (Auto) 16 % (0-9) H Eosinophils (%) (Auto) 5 % (0-3) H Basophils (%) (Auto) 1 % (0-3) Neutrophils # (Auto) 3.4 x10^3uL (1.8-7.7) Lymphocytes # (Auto) 2.9 x10^3/uL (1.0-4.8) Monocytes # (Auto) 1.3 x10^3/uL (0.0-1.1) H Eosinophils # (Auto) 0.4 x10^3/uL (0.0-0.7) Basophils # (Auto) 0.0 x10^3/uL (0.0-0.2) Sodium Level 139 mmol/L (136-145) Potassium Level 3.8 mmol/L (3.5-5.1) Chloride Level 105 mmol/L (98-107) Carbon Dioxide Level 32 mmol/L (21-32) Anion Gap 2 (6-14) L Blood Urea Nitrogen 15 mg/dL (7-20) Creatinine 0.8 mg/dL (0.6-1.0) Estimated GFR (Cockcroft-Gault) 68.2 BUN/Creatinine Ratio 19 (6-20) Glucose Level 86 mg/dL (70-99) Calcium Level 8.5 mg/dL (8.5-10.1) Total Bilirubin 0.3 mg/dL (0.2-1.0) Aspartate Amino Transferase (AST) 15 U/L (15-37) Alanine Aminotransferase (ALT) 17 U/L (14-59) Alkaline Phosphatase 65 U/L (46-116) Total Protein 6.2 g/dL (6.4-8.2) L Albumin 2.7 g/dL (3.4-5.0) L Albumin/Globulin Ratio 0.8 (1.0-1.7) L Current Medications: Meds: Current Medications Clonidine HCl (Catapres Tts-2) 1 patch 1X ONCE TD Last administered on at 01:00; Start 09/19/17 at 23:30; Stop 09/20/17 at 02:02; Status DC Clonidine HCl (Catapres) 0.1 mg 1X ONCE PO Last administered on 09/19/17at 01: 00; Start 09/19/17 at 23:30; Stop 09/20/17 at 02:02; Status DC Clonazepam (KlonoPIN) 0.25 mg DAILY PO Last administered on 10/04/17at 09:56; Start 09/20/17 at 09:00; Stop 10/04/17 at 18:13; Status DC Clonazepam (KlonoPIN) 0.5 mg HS PO Last administered on 10/04/17at 19:28; Start 09/20/17 at 21:00 Nortriptyline HCl (Pamelor) 50 mg HS PO ; Start 09/20/17 at 21:00; Stop at 21:00; Status DC Zolpidem Tartrate (Ambien) 5 mg HS PO Last administered on 10/04/17at 19:26; Start 09/20/17 at 21:00 Buspirone HCl (Buspar) 10 mg BID PO Last administered on 10/05/17at 08:01; Start 09/20/17 at 09:00 Paroxetine HCl (Paxil) 10 mg DAILY PO Last administered on 09/23/17at 08:11; Start 09/20/17 at 09:00; Stop 09/23/17 at 19:20; Status DC Calcium Carbonate/ Glycine (Oscal) 500 mg DAILY PO Last administered on at 08:01; Start 09/20/17 at 09:00 Metoprolol Succinate (Toprol Xl) 12.5 mg DAILY PO Last administered on at 08:02; Start 09/20/17 at 09:00 Acetaminophen (Tylenol) 1,000 mg PRN Q6HRS PRN PO PAIN / TEMP; Start 09/20/17 at 02:15 Acetaminophen (Tylenol) 500 mg PRN Q6HRS PRN PO PAIN / TEMP Last administered on 10/05/17at 02:32; Start 09/20/17 at 02:15 Magnesium Hydroxide (Milk Of Magnesia) 2,400 mg PRN DAILY PRN PO CONSTIPATION Last administered on 10/03/17at 20:08; Start 09/20/17 at 02:15 Sennosides (Senna) 8.6 mg PRN DAILY PRN PO CONSTIPATION; Start 09/20/17 at 02: 15 Multi-Ingredient Ointment (Analgesic [place]) 1 joaquim PRN QID PRN TP MUSCLE PAIN; Start 09/20/17 at 02:00 Al Hydroxide/Mg Hydroxide (Mylanta Plus Xs) 15 ml PRN AFTMEALHC PRN PO DYSPEPSIA; Start 09/20/17 at 02:00 Mirtazapine (Remeron) 7.5 mg QHS PO Last administered on 09/22/17at 20:30; Start 09/20/17 at 21:00; Stop 09/23/17 at 19:20; Status DC Alprazolam (Xanax) 0.25 mg PRN Q2HR PRN PO ANXIETY / AGITATION Last administered on 10/01/17at 14:46; Start 09/20/17 at 18:45 Vitamin D (Vitamin D3) 50,000 unit WEEKLY PO Last administered on 10/04/17at 09: 56; Start 09/20/17 at 19:30 Mirtazapine (Remeron) 15 mg QHS PO Last administered on 10/04/17at 19:26; Start 09/23/17 at 21:00 Paroxetine HCl (Paxil) 15 mg DAILY PO Last administered on 09/26/17at 08:21; Start 09/24/17 at 09:00; Stop 09/26/17 at 18:43; Status DC Trazodone HCl (Desyrel) 50 mg QHS PO ; Start 09/26/17 at 21:00; Stop 09/26/17 at 21:00; Status DC Trazodone HCl (Desyrel) 50 mg QHS PO Last administered on 10/04/17at 19:26; Start 09/25/17 at 23:00 Duloxetine HCl (Cymbalta) 30 mg DAILY PO Last administered on 09/29/17at 09:53; Start 09/27/17 at 09:00; Stop 09/29/17 at 18:00; Status DC Duloxetine HCl (Cymbalta) 60 mg DAILY PO Last administered on 10/05/17at 08:01; Start 09/30/17 at 09:00 Active Scripts Active Reported Milk Of Magnesia (Magnesium Hydroxide) 2,400 Mg/10 Ml Oral.susp 2,400 Mg PO PRN DAILY PRN Clonazepam 0.5 Mg Tablet 0.25 Mg PO DAILY Clonazepam 0.5 Mg Tablet 0.5 Mg PO HS Zolpidem Tartrate 5 Mg Tablet 5 Mg PO HS Oyster Shell Calcium (Calcium Carbonate) 500 Mg Tablet 500 Mg PO DAILY Senna (Sennosides) 8.6 Mg Tablet 8.6 Mg PO PRN DAILY PRN Acetaminophen 500 Mg Tablet 1,000 Mg PO PRN Q6HRS PRN Acetaminophen 500 Mg Tablet 500 Mg PO PRN Q4HRS PRN Metoprolol Succinate ( Xl ) (Metoprolol Succinate) 25 Mg Tab.er.24h 12.5 Mg PO DAILY Nortriptyline Hcl 25 Mg Capsule 50 Mg PO HS Buspirone Hcl 10 Mg Tablet 10 Mg PO BID Paroxetine Hcl 10 Mg Tablet 10 Mg PO DAILY I have reviewed the current psychotropics carefully including drug interactions. Risk benefit ratio favors no change other than as noted in my dictated progress note. 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
--- NOTE | 2017-10-05 20:19 | PN ---
DATE: 10/04/2017 PSYCHIATRIC PROGRESS NOTE This late entry 10/04/2017 covers elements not covered in my initial note. I met with the patient evening of 10/04/2017. The patient slept 7-1/4 hours previous evening. Overall, per nursing report, she is doing better, less anxious, has not needed a p.r.n. Xanax. The patient still has some fuzzy feeling in her head, but this is improved as well. REVIEW OF SYSTEMS: No CV, , pulmonary, eye, ENT system symptoms on review. MENTAL STATUS EXAM: Reasonably oriented. Speech coherent, abstraction fair, computation reasonable, language function intact, attention span fair. Mood and affect is improved. No suicidal or homicidal ideation. No psychotic symptoms. LABORATORY DATA: Reviewed. IMPRESSION: Unchanged from initial note. PLAN: Continue psychotropics from initial note. MAN Lulú BLAKELY MD DR: FERNANDA/kaitlin JOB#: [id number] / [id number]
[2017-10-05] MEDS: MIRTAZAPINE 15 MG TABLET PO SCH (20:23)
[2017-10-05] MEDS: traZODone 50 MG TABLET. PO SCH (20:23)
[2017-10-05] MEDS: ZOLPIDEM 5 MG TABLET. PO SCH (20:26)
[2017-10-05] MEDS: clonazePAM 0.5 MG TABLET PO SCH (20:27)
[2017-10-06 05:29] VITALS: BP 138/61
[2017-10-06] MEDS: busPIRone 10 MG TABLET. PO SCH ×2 (07:53→19:28)
[2017-10-06] MEDS: DULoxetine HCL 60 MG CAPSULE.DR PO SCH (07:53)
[2017-10-06] MEDS: METOPROLOL SUCC 24HR ER 25 MG TAB.ER.24H. PO SCH (07:54)
[2017-10-06] MEDS: CALCIUM CARBONATE 500 MG TABLET PO SCH (07:54)
[2017-10-06 15:59] VITALS: BP 135/70
[2017-10-06] MEDS: MAGNESIUM HYDROXIDE 2,400 MG/30 ML ORAL.SUSP. PO PRN (18:11)
[2017-10-06] MEDS: MIRTAZAPINE 15 MG TABLET PO SCH (19:28)
[2017-10-06] MEDS: traZODone 50 MG TABLET. PO SCH (19:28)
[2017-10-06] MEDS: ZOLPIDEM 5 MG TABLET. PO SCH (19:29)
[2017-10-06] MEDS: clonazePAM 0.5 MG TABLET PO SCH (19:29)
--- NOTE | 2017-10-06 20:50 | PDOC ---
Exam Note: Reyanldo Note: Please also refer to the separate dictated note~for this date of service dictated separately.~Patient seen individually. Discussed the patient with Nursing staff reviewed the chart.~Reviewed interim history and current functioning. Reviewed vital signs,~Labs/ Radiology~and current medications noted below. Continue current treatment with the changes noted in the dictated addendum note Assessment: Vital Signs: Vital Signs Date Time Temp Pulse Resp B/P (MAP) Pulse Ox O2 Delivery O2 Flow Rate FiO2 10/06/17 15:59 98.3 73 17 135/70 (91) 97 Room Air I&O Intake and Output 10/06/17 06:59 Intake Total 1440 ml Balance 1440 ml Intake Oral 1440 ml Current Medications: Meds: Current Medications Clonidine HCl (Catapres Tts-2) 1 patch 1X ONCE TD Last administered on at 01:00; Start 09/19/17 at 23:30; Stop 09/20/17 at 02:02; Status DC Clonidine HCl (Catapres) 0.1 mg 1X ONCE PO Last administered on 09/19/17at 01: 00; Start 09/19/17 at 23:30; Stop 09/20/17 at 02:02; Status DC Clonazepam (KlonoPIN) 0.25 mg DAILY PO Last administered on 10/04/17at 09:56; Start 09/20/17 at 09:00; Stop 10/04/17 at 18:13; Status DC Clonazepam (KlonoPIN) 0.5 mg HS PO Last administered on 10/06/17at 19:29; Start 09/20/17 at 21:00 Nortriptyline HCl (Pamelor) 50 mg HS PO ; Start 09/20/17 at 21:00; Stop at 21:00; Status DC Zolpidem Tartrate (Ambien) 5 mg HS PO Last administered on 10/06/17at 19:29; Start 09/20/17 at 21:00 Buspirone HCl (Buspar) 10 mg BID PO Last administered on 10/06/17at 19:28; Start 09/20/17 at 09:00 Paroxetine HCl (Paxil) 10 mg DAILY PO Last administered on 09/23/17at 08:11; Start 09/20/17 at 09:00; Stop 09/23/17 at 19:20; Status DC Calcium Carbonate/ Glycine (Oscal) 500 mg DAILY PO Last administered on 07:54; Start 09/20/17 at 09:00 Metoprolol Succinate (Toprol Xl) 12.5 mg DAILY PO Last administered on at 07:54; Start 09/20/17 at 09:00 Acetaminophen (Tylenol) 1,000 mg PRN Q6HRS PRN PO PAIN / TEMP; Start 09/20/17 at 02:15 Acetaminophen (Tylenol) 500 mg PRN Q6HRS PRN PO PAIN / TEMP Last administered on 10/05/17at 02:32; Start 09/20/17 at 02:15 Magnesium Hydroxide (Milk Of Magnesia) 2,400 mg PRN DAILY PRN PO CONSTIPATION Last administered on 10/06/17at 18:11; Start 09/20/17 at 02:15 Sennosides (Senna) 8.6 mg PRN DAILY PRN PO CONSTIPATION; Start 09/20/17 at 02: 15 Multi-Ingredient Ointment (Analgesic [place]) 1 joaquim PRN QID PRN TP MUSCLE PAIN; Start 09/20/17 at 02:00 Al Hydroxide/Mg Hydroxide (Mylanta Plus Xs) 15 ml PRN AFTMEALHC PRN PO DYSPEPSIA; Start 09/20/17 at 02:00 Mirtazapine (Remeron) 7.5 mg QHS PO Last administered on 09/22/17at 20:30; Start 09/20/17 at 21:00; Stop 09/23/17 at 19:20; Status DC Alprazolam (Xanax) 0.25 mg PRN Q2HR PRN PO ANXIETY / AGITATION Last administered on 10/01/17at 14:46; Start 09/20/17 at 18:45 Vitamin D (Vitamin D3) 50,000 unit WEEKLY PO Last administered on 10/04/17at 09: 56; Start 09/20/17 at 19:30 Mirtazapine (Remeron) 15 mg QHS PO Last administered on 10/06/17at 19:28; Start 09/23/17 at 21:00 Paroxetine HCl (Paxil) 15 mg DAILY PO Last administered on 09/26/17at 08:21; Start 09/24/17 at 09:00; Stop 09/26/17 at 18:43; Status DC Trazodone HCl (Desyrel) 50 mg QHS PO ; Start 09/26/17 at 21:00; Stop 09/26/17 at 21:00; Status DC Trazodone HCl (Desyrel) 50 mg QHS PO Last administered on 10/06/17at 19:28; Start 09/25/17 at 23:00 Duloxetine HCl (Cymbalta) 30 mg DAILY PO Last administered on 09/29/17at 09:53; Start 09/27/17 at 09:00; Stop 09/29/17 at 18:00; Status DC Duloxetine HCl (Cymbalta) 60 mg DAILY PO Last administered on 10/06/17at 07:53; Start 09/30/17 at 09:00 Active Scripts Active Reported Milk Of Magnesia (Magnesium Hydroxide) 2,400 Mg/10 Ml Oral.susp 2,400 Mg PO PRN DAILY PRN Clonazepam 0.5 Mg Tablet 0.25 Mg PO DAILY Clonazepam 0.5 Mg Tablet 0.5 Mg PO HS Zolpidem Tartrate 5 Mg Tablet 5 Mg PO HS Oyster Shell Calcium (Calcium Carbonate) 500 Mg Tablet 500 Mg PO DAILY Senna (Sennosides) 8.6 Mg Tablet 8.6 Mg PO PRN DAILY PRN Acetaminophen 500 Mg Tablet 1,000 Mg PO PRN Q6HRS PRN Acetaminophen 500 Mg Tablet 500 Mg PO PRN Q4HRS PRN Metoprolol Succinate ( Xl ) (Metoprolol Succinate) 25 Mg Tab.er.24h 12.5 Mg PO DAILY Nortriptyline Hcl 25 Mg Capsule 50 Mg PO HS Buspirone Hcl 10 Mg Tablet 10 Mg PO BID Paroxetine Hcl 10 Mg Tablet 10 Mg PO DAILY I have reviewed the current psychotropics carefully including drug interactions. Risk benefit ratio favors no change other than as noted in my dictated progress note. 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
[2017-10-07 05:44] VITALS: BP 133/70
[2017-10-07] MEDS ORDERED: CHOL500050 PO (06:45)
[2017-10-07] MEDS ORDERED: ALPR0.254 PO (06:46)
[2017-10-07] MEDS ORDERED: DULO60CA6 PO (06:47)
[2017-10-07] MEDS ORDERED: MAG30ORA2 PO (06:48)
[2017-10-07] MEDS ORDERED: METH29OI TP (06:49)
[2017-10-07] MEDS ORDERED: MIRT15TA3 PO (06:50)
[2017-10-07] MEDS ORDERED: TRAZ50TA15 PO (06:51)
[2017-10-07 08:07] VITALS: BP 133/70
[2017-10-07] MEDS: METOPROLOL SUCC 24HR ER 25 MG TAB.ER.24H. PO SCH (08:07)
[2017-10-07] MEDS: busPIRone 10 MG TABLET. PO SCH (08:08)
[2017-10-07] MEDS: DULoxetine HCL 60 MG CAPSULE.DR PO SCH (08:08)
[2017-10-07] MEDS: CALCIUM CARBONATE 500 MG TABLET PO SCH (08:08)
[2017-10-07] MEDS: ALPRAZolam 0.25 MG TABLET PO PRN (11:15)
--- NOTE | 2017-10-07 18:36 | PDOC ---
Exam Note: Reynaldo Note: Please also refer to the separate dictated note~for this date of service dictated separately.~Patient seen individually. Discussed the patient with Nursing staff reviewed the chart.~Reviewed interim history and current functioning. Reviewed vital signs,~Labs/ Radiology~and current medications noted below. Continue current treatment with the changes noted in the dictated addendum note Assessment: Vital Signs: Vital Signs Date Time Temp Pulse Resp B/P (MAP) Pulse Ox O2 Delivery O2 Flow Rate FiO2 10/07/17 08:07 63 133/70 10/07/17 05:44 98.2 20 96 10/06/17 15:59 Room Air I&O Intake and Output 10/07/17 07:00 Intake Total 1200 ml Balance 1200 ml Intake Oral 1200 ml Current Medications: Meds: Current Medications Clonidine HCl (Catapres Tts-2) 1 patch 1X ONCE TD Last administered on at 01:00; Start 09/19/17 at 23:30; Stop 09/20/17 at 02:02; Status DC Clonidine HCl (Catapres) 0.1 mg 1X ONCE PO Last administered on 09/19/17at 01: 00; Start 09/19/17 at 23:30; Stop 09/20/17 at 02:02; Status DC Clonazepam (KlonoPIN) 0.25 mg DAILY PO Last administered on 10/04/17at 09:56; Start 09/20/17 at 09:00; Stop 10/04/17 at 18:13; Status DC Clonazepam (KlonoPIN) 0.5 mg HS PO Last administered on 10/06/17at 19:29; Start 09/20/17 at 21:00; Stop 10/07/17 at 12:43; Status DC Nortriptyline HCl (Pamelor) 50 mg HS PO ; Start 09/20/17 at 21:00; Stop at 21:00; Status DC Zolpidem Tartrate (Ambien) 5 mg HS PO Last administered on 10/06/17at 19:29; Start 09/20/17 at 21:00; Stop 10/07/17 at 12:43; Status DC Buspirone HCl (Buspar) 10 mg BID PO Last administered on 10/07/17at 08:08; Start 09/20/17 at 09:00; Stop 10/07/17 at 12:43; Status DC Paroxetine HCl (Paxil) 10 mg DAILY PO Last administered on 09/23/17at 08:11; Start 09/20/17 at 09:00; Stop 09/23/17 at 19:20; Status DC Calcium Carbonate/ Glycine (Oscal) 500 mg DAILY PO Last administered on at 08:08; Start 09/20/17 at 09:00; Stop 10/07/17 at 12:43; Status DC Metoprolol Succinate (Toprol Xl) 12.5 mg DAILY PO Last administered on at 08:07; Start 09/20/17 at 09:00; Stop 10/07/17 at 12:43; Status DC Acetaminophen (Tylenol) 1,000 mg PRN Q6HRS PRN PO PAIN / TEMP; Start 09/20/17 at 02:15; Stop 10/07/17 at 12:43; Status DC Acetaminophen (Tylenol) 500 mg PRN Q6HRS PRN PO PAIN / TEMP Last administered on 10/05/17at 02:32; Start 09/20/17 at 02:15; Stop 10/07/17 at 12:43; Status DC Magnesium Hydroxide (Milk Of Magnesia) 2,400 mg PRN DAILY PRN PO CONSTIPATION Last administered on 10/06/17at 18:11; Start 09/20/17 at 02:15; Stop 10/07/17 at 12:43; Status DC Sennosides (Senna) 8.6 mg PRN DAILY PRN PO CONSTIPATION; Start 09/20/17 at 02: 15; Stop 10/07/17 at 12:43; Status DC Multi-Ingredient Ointment (Analgesic [place]) 1 brandon PRN QID PRN TP MUSCLE PAIN; Start 09/20/17 at 02:00; Stop 10/07/17 at 12:43; Status DC Al Hydroxide/Mg Hydroxide (Mylanta Plus Xs) 15 ml PRN AFTMEALHC PRN PO DYSPEPSIA; Start 09/20/17 at 02:00; Stop 10/07/17 at 12:43; Status DC Mirtazapine (Remeron) 7.5 mg QHS PO Last administered on 09/22/17at 20:30; Start 09/20/17 at 21:00; Stop 09/23/17 at 19:20; Status DC Alprazolam (Xanax) 0.25 mg PRN Q2HR PRN PO ANXIETY / AGITATION Last administered on 10/07/17at 11:15; Start 09/20/17 at 18:45; Stop 10/07/17 at 12:43 ; Status DC Vitamin D (Vitamin D3) 50,000 unit WEEKLY PO Last administered on 10/04/17at 09: 56; Start 09/20/17 at 19:30; Stop 10/07/17 at 12:43; Status DC Mirtazapine (Remeron) 15 mg QHS PO Last administered on 10/06/17at 19:28; Start 09/23/17 at 21:00; Stop 10/07/17 at 12:43; Status DC Paroxetine HCl (Paxil) 15 mg DAILY PO Last administered on 09/26/17at 08:21; Start 09/24/17 at 09:00; Stop 09/26/17 at 18:43; Status DC Trazodone HCl (Desyrel) 50 mg QHS PO ; Start 09/26/17 at 21:00; Stop 09/26/17 at 21:00; Status DC Trazodone HCl (Desyrel) 50 mg QHS PO Last administered on 10/06/17at 19:28; Start 09/25/17 at 23:00; Stop 10/07/17 at 12:43; Status DC Duloxetine HCl (Cymbalta) 30 mg DAILY PO Last administered on 09/29/17at 09:53; Start 09/27/17 at 09:00; Stop 09/29/17 at 18:00; Status DC Duloxetine HCl (Cymbalta) 60 mg DAILY PO Last administered on 10/07/17at 08:08; Start 09/30/17 at 09:00; Stop 10/07/17 at 12:43; Status DC Active Scripts Active Reported Trazodone Hcl 50 Mg Tablet 50 Mg PO QHS Mirtazapine 15 Mg Tablet 15 Mg PO QHS Analgesic [place] (Methyl Salicylate/Menthol) 28 Gm Oint...g. 1 [place] TP PRN QID PRN Mag-Al Plus Xs Suspension (Mag Hydrox/Al Hydrox/Simeth) 30 Ml Oral.susp 15 Ml PO PRN AFTMEALHC PRN Cymbalta (Duloxetine Hcl) 60 Mg Capsule.dr 60 Mg PO DAILY Alprazolam 0.25 Mg Tablet 0.25 Mg PO PRN Q2HR PRN Vitamin D3 (Cholecalciferol (Vitamin D3)) 50,000 Unit Capsule 50,000 Unit PO WEEKLY Milk Of Magnesia (Magnesium Hydroxide) 2,400 Mg/10 Ml Oral.susp 2,400 Mg PO PRN DAILY PRN Clonazepam 0.5 Mg Tablet 0.5 Mg PO HS Zolpidem Tartrate 5 Mg Tablet 5 Mg PO HS Oyster Shell Calcium (Calcium Carbonate) 500 Mg Tablet 500 Mg PO DAILY Senna (Sennosides) 8.6 Mg Tablet 8.6 Mg PO PRN DAILY PRN Acetaminophen 500 Mg Tablet 1,000 Mg PO PRN Q6HRS PRN Metoprolol Succinate ( Xl ) (Metoprolol Succinate) 25 Mg Tab.er.24h 12.5 Mg PO DAILY Buspirone Hcl 10 Mg Tablet 10 Mg PO BID I have reviewed the current psychotropics carefully including drug interactions. Risk benefit ratio favors no change other than as noted in my dictated progress note. 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
--- NOTE | 2017-10-07 23:45 | PN ---
DATE: 10/05/2017 PSYCHIATRIC PROGRESS NOTE This is a late entry 10/05/2017 covers elements not covered in my initial note. SUBJECTIVE: I met with the patient in the evening. Overall, the patient slept 6-1/4 hours previous evening, somewhat tearful at times, but able to compose herself. She overall feels some a.m. anxiety, but better than before. REVIEW OF SYSTEMS: No CV, , pulmonary, eye, ENT system symptoms on review. MENTAL STATUS EXAM: Reasonably oriented. Speech is coherent, abstraction fair, computation impaired, language function intact, attention span short. Mood and affect despite the above is showing improvement. LABORATORY DATA: Reviewed. IMPRESSION: Unchanged from initial note. PLAN: Continue psychotropics from my initial note. MAN Lulú BLAKELY MD DR: FERNANDA/kaitlin JOB#: [id number] / [id number]
--- NOTE | 2017-10-07 23:46 | PN ---
DATE: 10/06/2017 PSYCHIATRIC PROGRESS NOTE This is a late entry 10/06/2017, covers elements not covered in my initial note. SUBJECTIVE: I met with the patient in the evening and she was staffed at treatment team meeting with the entire team. In the morning the patient slept 4-1/2 hours, average is 6-1/2 hours. Appetite 100%. Reviewed her history at some length in progress, discharge plans. REVIEW OF SYSTEMS: No CV, , pulmonary, eye, ENT system symptoms on review. Feels anxiety is better. MENTAL STATUS EXAM: Reasonably oriented. Speech coherent, abstraction fair, computation impaired, language function intact. Mood and affect is improved. IMPRESSION: Unchanged from initial note. PLAN: Continue current psychotropics from initial note. MAN Lulú BLAKELY MD DR: FERNANDA/kaitlin JOB#: [id number] / [id number]
--- NOTE | 2017-10-09 20:27 | DS ---
DATE OF DISCHARGE: 10/07/2017 This is a late entry, 10/07/2017, covers the elements not covered in my initial note, 10/07/2017. REASON FOR ADMISSION: Please refer to the admission history for details. Briefly, the patient is an 87-year-old female referred to us from [facility] in [place] at the [place] [facility] on account of increased anxiety, worsening symptoms of depression, crying a lot, having somatic symptoms, saying she cannot breathe, cannot function. She had failed outpatient psychiatric interventions resulting in this referral. She is reasonably cognitively intact. SIGNIFICANT FINDINGS AND CLINICAL COURSE: Following admission, the patient was seen daily individually by myself from a psychiatric standpoint, medical followup per Dr. Davila/Dr. Galvin. She is extremely anxious, tearful, labile at times, and needing frequent Xanax. Cognitively again, she is reasonably intact. Adjustments were made in her psychotropics. Paxil changed to Cymbalta and this was increased to 60 mg a day, BuSpar added increasing to 10 mg b.i.d., Remeron 15 mg at bedtime, Ambien 5 mg at bedtime for insomnia, Klonopin 0.5 mg at bedtime and this could be tapered as an outpatient. Xanax was 0.25 mg q.2 hours p.r.n. anxiety, max 1 mg in 24 hours, trazodone 50 mg at bedtime. Gradually, the patient's mood appeared to improve. She was not using any Xanax for anxiety. Pleasant and cooperative, more animated, and verbal. No suicidal or homicidal ideation. CONDITION AT DISCHARGE: Improved. MENTAL STATUS EXAM: Oriented to herself and situation. Speech coherent, pleasant, verbal. Abstraction fair, computation reasonable, language function intact. Attention span improved. Mood and affect was improved. No suicidal or homicidal ideation. CONDITION AT DISCHARGE: Improved. FINAL DIAGNOSES: Major depressive disorder, recurrent, in partial remission; anxiety disorder, unspecified. Rest unchanged from admission. DISCHARGE MEDICATIONS: Please refer to the MRAD. DISCHARGE INSTRUCTIONS: Outpatient psychiatric and medical followup in [place]. Time for discharge and management greater than 30 minutes. PEDRO BLAKELY MD DR: FERNANDA/kaitlin JOB#: [id number] / [id number]
== END 2017-10-07 12:42 | DRG 885 ==
LOC: ER 22:52 → GEROPSY 09-20 01:00
PROVIDERS: ADMIT Psychiatry & Neurology Psychiatry; ATTEND Psychiatry & Neurology Psychiatry
DX: F33.9 Major depressive disorder, recurrent, unspecified (principal); E55.9 Vitamin D deficiency, unspecified; F33.41 Major depressive disorder, recurrent, in partial remission; G47.00 Insomnia, unspecified; F41.1 Generalized anxiety disorder; F40.01 Agoraphobia with panic disorder; M81.0 Age-related osteoporosis without current pathological fracture; Z96.652 Presence of left artificial knee joint; K59.09 Other constipation; Z66 Do not resuscitate; I10 Essential (primary) hypertension; Z80.0 Family history of malignant neoplasm of digestive organs; Z80.3 Family history of malignant neoplasm of breast; Z82.49 Family history of ischemic heart disease and other diseases of the circulatory system; Z98.41 Cataract extraction status, right eye; Z98.42 Cataract extraction status, left eye; Z79.899 Other long term (current) drug therapy; Z93.0 Tracheostomy status; Z88.8 Allergy status to other drugs, medicaments and biological substances
CPT/HCPCS: 36415; 70450; 71045; 80048; 80053; 80061; 80076; 80307; 81001; 82140; 82306; 82553; 82607; 83036; 83540; 83550; 83735; 83880; 84436; 84443; 84480; 84484; 85025; 85610; 85651; 85730; 86592; 87086; 93005; G0238; G0480; 99285-25; G0479